=== PATIENT | male | born 1960 | race Caucasian/White ===

== ENCOUNTER 2020-08-24 07:59 | Inpatient (IN) | payer OTHER ==
[2020-08-24] MEDS ORDERED: NITROGLYCERIN OINT 1 INCH/GM PACKET TOPICAL STA (08:22)
[2020-08-24] MEDS ORDERED: ASPIRIN 81 MG PO STA (08:22)
--- NOTE | 2020-08-24 08:25 | ED ---
General Adult HPI - General Chief complaint: Chest Pain Stated complaint: chest pain Time Seen by Provider: 08/24/20 08:00 Source: patient, RN notes reviewed, old records reviewed Mode of arrival: ambulatory Limitations: no limitations - History of Present Illness Initial comments: This is a 60-year-old male with a past medical history significant for multiple heart attacks stents and bypass surgery. Patient states today's discomfort started about 2 hours ago and goes worse just to his left arm. Patient states this feels exactly like his chest pain always feels weak and he has a heart attack. Patient states he has some shortness of breath. Patient denies any diaphoretic episodes. Patient denies any nausea. Patient denies taking any aspirin or nitroglycerin. Patient states he does continue to smoke. Patient denies any abdominal pain patient denies any back pain. Patient denies any headache patient denies lightheadedness dizziness or near syncopal episode. Patient denies any numbness weakness per patient denies any leg swelling or calf tenderness. - Related Data Home Medications Medication Instructions Recorded Confirmed No Known Home Medications 08/24/20 08/24/20 Allergies Allergy/AdvReac Type Severity Reaction Status Date / Time No Known Allergies Allergy Verified 08/24/20 09:25 Review of Systems ROS Statement: Those systems with pertinent positive or pertinent negative responses have been documented in the HPI. ROS Other: All systems not noted in ROS Statement are negative. Past Medical History Past Medical History: Coronary Artery Disease (CAD), CVA/TIA, Hyperlipidemia, Hypertension, Myocardial Infarction (non Q-wave) Additional Past Medical History / Comment(s): 02/14/15 Pt presented to [facility] ER with burining in his chest on and off for past several weeks. Other HX: Pt believes he has had abouut 4 MIs with last one being the summer. He had a CVA during cardiac cath with stent in 2009-he still has alittle R hand numbness as residual. Pt states he notices that his R leg will get numb if he stands for a long time or walks a long distance. Last Myocardial Infarction Date:: 2009 History of Any Multi-Drug Resistant Organisms: None Reported Past Surgical History: Coronary Bypass/CABG, Heart Catheterization With Stent Additional Past Surgical History / Comment(s): 2003 triple vessel CABG at [facility] in [place]. Cardiac cath with stents last performed in [facility] in 2009. Past Anesthesia/Blood Transfusion Reactions: No Reported Reaction Date of Last Stent Placement:: 2009 Past Psychological History: No Psychological Hx Reported Smoking Status: Current every day smoker Past Alcohol Use History: Occasional Past Drug Use History: None Reported - Past Family History Father Family Medical History: Coronary Artery Disease (CAD) Additional Family Medical History / Comment(s): Father had CABG Mother Family Medical History: Coronary Artery Disease (CAD), Diabetes Mellitus Additional Family Medical History / Comment(s): Mother after CABG at age 62yrs. General Exam - General Exam Comments Initial Comments: GENERAL: Patient is well-developed and well-nourished. Patient is nontoxic and well- hydrated and is in mild distress. ENT: Neck is soft and supple. No significant lymphadenopathy is noted. Oropharynx is clear. Moist mucous membranes. Neck has full range of motion without eliciting any pain. EYES: The sclera were anicteric and conjunctiva were pink and moist. Extraocular movements were intact and pupils were equal round and reactive to light. Eyelids were unremarkable. PULMONARY: Unlabored respirations. Good breath sounds bilaterally. No audible rales rhonchi or wheezing was noted. CARDIOVASCULAR: There is a regular rate and rhythm without any murmurs gallops or rubs. ABDOMEN: Soft and nontender with normal bowel sounds. SKIN: Skin is clear with no lesions or rashes and otherwise unremarkable. NEUROLOGIC: Patient is alert and oriented x3. Cranial nerves II through XII are grossly intact. Motor and sensory are also intact. Normal speech, volume and content. Symmetrical smile. MUSCULOSKELETAL: Normal extremities with adequate strength and full range of motion. LYMPHATICS: No significant lymphadenopathy is noted PSYCHIATRIC: Normal psychiatric evaluation. Limitations: no limitations Course Vital Signs 08/24/20 08:01 Temperature 98 F Pulse Rate 67 Respiratory 18 Rate Blood Pressure 104/71 O2 Sat by Pulse 100 Oximetry Medical Decision Making - Medical Decision Making EKG shows normal sinus rhythm at 67 bpm WY interval 262 QRS is 130 for QT intervals 434 QTC is 458. Patient's EKG shows ST segment depression in precordial leads V3 through V6. Patient has inverted T waves in leads 3 and aVF V5 and V6. These are seen in previous EKG to a lesser degree. Second EKG was done shows normal sinus rhythm at 60 bpm WY interval is 172 QRS is 148 QT interval 448 QTC is 476. Patient's EKG continued to show some inverted T waves in V5 and V6 and slight ST segment depression in V3 and V4. This is slightly improved compared the previous EKG. I started the patient on heparin because his significant symptoms indicative of unstable angina. I spoke with Dr. schwarz he agreed to admit the patient admitted the patient wrote admitting orders I consult cardiology continue the heparin aspirin Nitropaste on the floor. - Lab Data Result diagrams: 08/24/20 08:50 08/24/20 08:50 Lab Results 08/24/20 08/24/20 08/24/20 Range/Units 08:50 08:50 08:50 WBC 12.5 H (3.8-10.6) k/uL RBC 5.63 (4.30-5.90) m/uL Hgb 17.6 H (13.0-17.5) gm/dL Hct 54.4 H (39.0-53.0) % MCV 96.5 (80.0-100.0) fL MCH 31.2 (25.0-35.0) pg MCHC 32.3 (31.0-37.0) g/dL RDW 13.2 (11.5-15.5) % Plt Count 297 (150-450) k/uL Neutrophils % 85 % Lymphocytes % 8 % Monocytes % 4 % Eosinophils % 2 % Basophils % 1 % Neutrophils # 10.7 H (1.3-7.7) k/uL Lymphocytes # 1.0 (1.0-4.8) k/uL Monocytes # 0.5 (0-1.0) k/uL Eosinophils # 0.2 (0-0.7) k/uL Basophils # 0.1 (0-0.2) k/uL PT 10.2 (9.0-12.0) sec INR 1.0 (<1.2) APTT 23.9 (22.0-30.0) sec Sodium 142 (137-145) mmol/L Potassium 4.8 (3.5-5.1) mmol/L Chloride 106 (98-107) mmol/L Carbon Dioxide 26 (22-30) mmol/L Anion Gap 10 mmol/L BUN 23 H (9-20) mg/dL Creatinine 1.33 H (0.66-1.25) mg/dL Est GFR (CKD-EPI)AfAm 67 (>60 ml/min/1.73 sqM) Est GFR (CKD-EPI)NonAf 58 (>60 ml/min/1.73 sqM) Glucose 113 H (74-99) mg/dL Calcium 9.8 (8.4-10.2) mg/dL Magnesium 2.0 (1.6-2.3) mg/dL Total Bilirubin 0.6 (0.2-1.3) mg/dL AST 26 (17-59) U/L ALT 19 (4-49) U/L Alkaline Phosphatase 72 (38-126) U/L Troponin I (0.000-0.034) ng/mL Total Protein 8.7 H (6.3-8.2) g/dL Albumin 5.0 (3.5-5.0) g/dL 08/24/20 Range/Units 08:50 WBC (3.8-10.6) k/uL RBC (4.30-5.90) m/uL Hgb (13.0-17.5) gm/dL Hct (39.0-53.0) % MCV (80.0-100.0) fL MCH (25.0-35.0) pg MCHC (31.0-37.0) g/dL RDW (11.5-15.5) % Plt Count (150-450) k/uL Neutrophils % % Lymphocytes % % Monocytes % % Eosinophils % % Basophils % % Neutrophils # (1.3-7.7) k/uL Lymphocytes # (1.0-4.8) k/uL Monocytes # (0-1.0) k/uL Eosinophils # (0-0.7) k/uL Basophils # (0-0.2) k/uL PT (9.0-12.0) sec INR (<1.2) APTT (22.0-30.0) sec Sodium (137-145) mmol/L Potassium (3.5-5.1) mmol/L Chloride (98-107) mmol/L Carbon Dioxide (22-30) mmol/L Anion Gap mmol/L BUN (9-20) mg/dL Creatinine (0.66-1.25) mg/dL Est GFR (CKD-EPI)AfAm (>60 ml/min/1.73 sqM) Est GFR (CKD-EPI)NonAf (>60 ml/min/1.73 sqM) Glucose (74-99) mg/dL Calcium (8.4-10.2) mg/dL Magnesium (1.6-2.3) mg/dL Total Bilirubin (0.2-1.3) mg/dL AST (17-59) U/L ALT (4-49) U/L Alkaline Phosphatase (38-126) U/L Troponin I 0.028 (0.000-0.034) ng/mL Total Protein (6.3-8.2) g/dL Albumin (3.5-5.0) g/dL Critical Care Time Critical Care Time: Yes Total Critical Care Time: 35 Disposition Clinical Impression: Unstable angina pectoris Disposition: ADMITTED IP TO THIS HOSP Referrals: None,Stated [Primary Care Provider] - 1-2 days Time of Disposition: 09:48
[2020-08-24] MEDS ORDERED: SODIUM CHLORIDE 0.9% 1,000 ML IV ONE (08:26)
[2020-08-24 09:00] LABS: Basophils # (A) 0.1 k/uL (0-0.2); Basophils % (A) 1 %; Eosinophils # (A) 0.2 k/uL (0-0.7); Eosinophils % (A) 2 %; HCT 54.4 % (39.0-53.0); HGB 17.6 gm/dL (13.0-17.5); Lymphocytes % (A) 8 %; MCH 31.2 pg (25.0-35.0); MCHC 32.3 g/dL (31.0-37.0); MCV 96.5 fL (80.0-100.0); Mean Platelet Volume 8.3; Monocytes # (A) 0.5 k/uL (0-1.0); Monocytes % (A) 4 %; Neutrophils # (A) 10.7 k/uL (1.3-7.7); Neutrophils % (A) 85 %; Platelet Count 297 k/uL (150-450); RBC 5.63 m/uL (4.30-5.90); RDW 13.2 % (11.5-15.5); WBC 12.5 k/uL (3.8-10.6)
[2020-08-24 09:17] LABS: Calcium 9.8 mg/dL (8.4-10.2); Potassium 4.8 mmol/L (3.5-5.1); Total Bilirubin 0.6 mg/dL (0.2-1.3); Total Protein 8.7 g/dL (6.3-8.2)
[2020-08-24] MEDS ORDERED: MORPHINE SULFATE 2 MG/ML SYRINGE IVP STA (09:19)
[2020-08-24 09:22] LABS: Partial Thromboplastin Time 23.9 sec (22.0-30.0); Prothrombin Time 10.2 sec (9.0-12.0)
--- NOTE | 2020-08-24 09:22 | XR ---
EXAMINATION TYPE: XR chest 2V DATE OF EXAM: 08/24/2020 COMPARISON: 02/07/1715 TECHNIQUE: PA and lateral views submitted. HISTORY: Chest pain FINDINGS: The lungs are clear and there is no pneumothorax, pleural effusion, or focal pneumonia. Heart is pr ominent there is postoperative change. Hyperinflation suggests COPD. Mild coarsened interstitium. Hyp ertrophic and degenerative change of the spine. IMPRESSION: 1. COPD with cardiomegaly correlate for mild chronic interstitial venous congestion or interstitial l murali disease.
[2020-08-24] MEDS ORDERED: HEPARIN SOD,PORK IN 0.45% NACL 25,000 UNIT in 0.45% NACL 1 250ML.BAG IV SCH (09:45)
[2020-08-24] MEDS ORDERED: HEPARIN SODIUM,PORCINE 5,000 UNIT/ML 1 ML VIAL IV ONE (09:45)
[2020-08-24] MEDS ORDERED: NITROGLYCERIN SL TABS 0.4 MG TAB SUBLINGUAL PRN ×2 (09:48→12:41)
[2020-08-24] MEDS ORDERED: HYDROmorphone 0.5 MG/0.5 ML SYRINGE IVP STA (09:49)
[2020-08-24] MEDS ORDERED: SODIUM CHLORIDE 0.9% 500 ML 500 ML IV STA (09:49)
[2020-08-24] MEDS ORDERED: HYDROmorphone 0.5 MG/0.5 ML SYRINGE IVP PRN (11:39)
[2020-08-24] MEDS ORDERED: HYDROmorphone 1 MG/ML 1 ML SYRINGE IVP STA (11:47)
[2020-08-24] MEDS: NITROGLYCERIN OINT 1 INCH/GM PACKET TOPICAL SCH ×3 (12:21→23:35)
--- NOTE | 2020-08-24 12:38 | P.HPIM ---
History of Present Illness This is a pleasant 6 years old male with past medical history of coronary artery disease status post bypass surgery and multiple stents, he says that he has a stent placed in [facility], another stent in this hospital and last stent was placed and a segment of about one year ago patient states that he does not follow up with exchange underwriting consultant. I asked the patient takes any antiplatelets and he denies. He presents because of central chest pain of one-day duration, central severe, felt like pressure, similar to previous heart attack, no dyspnea or coughing or dizziness. He had multiple EKG was suspicious for mild ST elevation in inferior leads, as well as in V1 and V2. With some ST depression and T-wave inversion in the lat eral leads. Labs showing elevated troponin , First one was negative at 0.028, second one was 0.872, also his creatinine is slightly elevated at 1.3, no recent baseline. INR is normal to 1.0. He has mild leukocytosis of 12.5 k.. Chest x-ray of: No acute process. COPD Patient smokes about 1 pack per day, patient is counseled and he declines nicotine patch, he denies alcohol or illicit drugs. Patient states that he hasn't seen any doctor for a year I discussed the case with exchange underwriting consultant team who are at bedside evaluating the patient Review of Systems CONSTITUTIONAL: No fever, no malaise, no fatigue. HEENT: No recent visual problems or hearing problems. Denied any sore throat. CARDIOVASCULAR: No orthopnea, PND, no palpitations, no syncope. PULMONARY: No shortness of breath, no cough, no hemoptysis. GASTROINTESTINAL: No diarrhea, no nausea, no vomiting, no abdominal pain. Normoactive bowel sounds. NEUROLOGICAL: No headaches, no weakness, no numbness. HEMATOLOGICAL: Denies any bleeding or petechiae. GENITOURINARY: Denies any burning micturition, frequency, or urgency. MUSCULOSKELETAL/RHEUMATOLOGICAL: Denies any joint pain, swelling, or any muscle pain. ENDOCRINE: Denies any polyuria or polydipsia. Past Medical History Past Medical History: Coronary Artery Disease (CAD), CVA/TIA, Hyperlipidemia, Hypertension, Myocardial Infarction (non Q-wave) Additional Past Medical History / Comment(s): 02/14/15 Pt presented to [facility] ER with burining in his chest on and off for past several weeks. Other HX: Pt believes he has had abouut 4 MIs with last one being the summer. He had a CVA during cardiac cath with stent in 2009-he still has alittle R hand numbness as residual. Pt states he notices that his R leg will get numb if he stands for a long time or walks a long distance. Last Myocardial Infarction Date:: 2009 History of Any Multi-Drug Resistant Organisms: None Reported Past Surgical History: Coronary Bypass/CABG, Heart Catheterization With Stent Additional Past Surgical History / Comment(s): 2003 triple vessel CABG at [facility] in [place]. Cardiac cath with stents last performed in [facility] in 2009. Past Anesthesia/Blood Transfusion Reactions: No Reported Reaction Date of Last Stent Placement:: 2009 Past Psychological History: No Psychological Hx Reported Smoking Status: Current every day smoker Past Alcohol Use History: Occasional Past Drug Use History: None Reported - Past Family History Father Family Medical History: Coronary Artery Disease (CAD) Additional Family Medical History / Comment(s): Father had CABG Mother Family Medical History: Coronary Artery Disease (CAD), Diabetes Mellitus Additional Family Medical History / Comment(s): Mother after CABG at age 62yrs. Medications and Allergies Home Medications Medication Instructions Recorded Confirmed Type No Known Home Medications 08/24/20 08/24/20 History Allergies Allergy/AdvReac Type Severity Reaction Status Date / Time No Known Allergies Allergy Verified 08/24/20 09:25 Physical Exam Vitals: Vital Signs Temp Pulse Pulse Resp BP BP Pulse Ox 08/24/20 11:15 97.1 F L 71 16 113/72 96 08/24/20 10:26 66 16 102/70 99 08/24/20 09:59 72 16 102/70 96 08/24/20 09:48 69 16 101/67 99 08/24/20 08:01 98 F 67 18 104/71 100 Intake and Output 08/23/20 08/24/20 08/24/20 22:59 06:59 14:59 Other: Weight 86.183 kg GENERAL: The patient is alert and oriented x3, not in any acute distress. Well developed, well nourished. HEENT: Pupils are round and equally reacting to light. EOMI. No scleral icterus. No conjunctival pallor. Normocephalic, atraumatic. No pharyngeal erythema. No thyromegaly. CARDIOVASCULAR: S1 and S2 present. No murmurs, rubs, or gallops. PULMONARY: Chest is clear to auscultation, no wheezing or crackles. ABDOMEN: Soft, nontender, nondistended, normoactive bowel sounds. No palpable organomegaly. MUSCULOSKELETAL: No joint swelling or deformity. EXTREMITIES: No cyanosis, clubbing, or pedal edema. NEUROLOGICAL: Gross neurological examination did not reveal any focal deficits. SKIN: No rashes. No petechiae Results CBC & Chem 7: 08/24/20 08:50 08/24/20 08:50 Labs: Abnormal Lab Results - Last 24 Hours (Table) 08/24/20 08/24/20 08/24/20 Range/Units 08:50 08:50 10:50 WBC 12.5 H (3.8-10.6) k/uL Hgb 17.6 H (13.0-17.5) gm/dL Hct 54.4 H (39.0-53.0) % Neutrophils # 10.7 H (1.3-7.7) k/uL BUN 23 H (9-20) mg/dL Creatinine 1.33 H (0.66-1.25) mg/dL Glucose 113 H (74-99) mg/dL Troponin I 0.872 H* (0.000-0.034) ng/mL Total Protein 8.7 H (6.3-8.2) g/dL Assessment and Plan Assessment: Severe chest pain with elevated troponin suspicious for acute coronary syndrome noncompliance Acute kidney injury Nicotine dependence History of hypertension, blood pressure currently is low-normal Hyperlipidemia history of CABG and coronary artery disease status post multiple stents Plan: this is a pleasant 6 years old male who presents with chest pain, looks like of cardiac origin. Cardiology. Patient declined nicotine patch. We'll keep monitoring his creatinine and if escape worsening than normal cancer nephrology consult team evaluated the patient now, he is on heparin drip already and we'll continue that, continue with normal saline at 75 mL/h Labs and medication were reviewed.. Continue same treatment. Continue with symptomatic treatment. Resume home medication. Monitor lytes and vitals. DVT and GI prophylaxis. Further recommendations depends on the clinical course of the patient DVT prophylaxis: heparin GI Prophylaxis: Ppi Prognosis is guarded
[2020-08-24] MEDS ORDERED: ASPIRIN 325 MG TAB PO STA (12:41)
[2020-08-24] MEDS ORDERED: ATORVASTATIN 80 MG TAB PO STA (12:41)
[2020-08-24] MEDS ORDERED: ALPRAZolam 0.5 MG TAB PO PRN (12:41)
[2020-08-24] MEDS ORDERED: SODIUM CHLORIDE 0.9% 1,000 ML in EMPTY BAG 1 BAG IV ONE (12:41)
[2020-08-24] MEDS ORDERED: ALPRAZolam 0.25 MG TAB PO PRN (12:41)
[2020-08-24] MEDS ORDERED: LIDOCAINE 1% INJ 10MG/ML (20 ML MDV) ONE (13:11)
[2020-08-24] MEDS ORDERED: fentaNYL (PF) 50 MCG/ML 2 ML AMP ONE (13:26)
[2020-08-24] MEDS ORDERED: MIDAZOLAM 2 MG/2 ML VIAL IVP ONE (13:29)
[2020-08-24] MEDS ORDERED: fentaNYL (PF) 50 MCG/ML 2 ML AMP IVP ONE (13:30)
[2020-08-24] MEDS ORDERED: LIDOCAINE 1% INJ 10MG/ML (20 ML MDV) SQ ONE (13:30)
[2020-08-24] MEDS ORDERED: IV FLUID CONTINUATION 1,000 ML IV ONE (13:30)
--- NOTE | 2020-08-24 13:37 | P.CRDCN ---
History of Present Illness Consult date: 08/24/20 Requesting physician: Fan E Sheet Consult reason: chest pain Chief complaint: Chest pain History of present illness: This is a 60-year-old gentleman with documented history of coronary artery disease, he underwent coronary artery bypass grafting surgery in 2003 at which time patient had a LINARES to the LAD, saphenous vein graft to the RCA and saphenous vein graft to the ramus, and 2009 he presented with an acute inferior wall myocardial infarction to the hospital in [place], underwent stenting of a totally occluded vein graft to the ramus at that time, his RCA graft was presumably open although not mentioned in the report and the LINARES to the LAD was patent. Patient did incur a periprocedural stroke with speech disturbance at that time. In 2014 patient underwent a cardiac catheterization here with PTCA of the saphenous vein graft to the ramus and PTCA and stenting of the left main coronary artery in the body proximal and mid circumflex coronary artery. Patient also has a history of hypertension, hyperlipidemia, nicotine dependency smokes at least 2 packs of cigarettes per day, patient also used to drink alcohol heavily but states that he quit approximately 2 years ago. Patient does not follow with a contact lens fitter in spite of all of his cardiac history. He also states that he was not taking any Plavix at home, it is questionable as to whether or not he was even taking aspirin. He presented to the emergency room on this occasion with symptoms of midsternal chest pressure and heaviness which she states reminded him of what he had with prior stenting. Patient does state in September of last year he underwent angioplasty and stent placement in [facility]. His initial EKG on presentation here was performed at 8 11 in the morning it showed a normal sinus rhythm with possible mild ST elevation in the inferior leads and ST depression noted in the lateral leads. Subsequent EKG showed normal sinus rhythm with ST depression noted in the lateral leads and T- wave inversion in the inferior leads. Chest x-ray showed COPD with cardiomegaly, mild chronic interstitial venous congestion. Blood pressure 102/70 with a heart rate in the 60s to 70s, 99% on 2 L of oxygen. White blood cell count 12.5, hemoglobin 17.6, platelet count 297. Sodium 142, potassium 4.8, BUN 23, creatinine 1.3. Initial troponin 0.028, subsequent troponin 0.872. Magnesium 2.0. At the time of my examination in the emergency room, patient continues to have midsternal chest pressure and heaviness, he has Nitropaste on and was given 0.5 of the LAD, in spite of that continues to have chest discomfort. Past Medical History Past Medical History: Coronary Artery Disease (CAD), Heart Failure, COPD, CVA/TIA, Hyperlipidemia, Hypertension, Myocardial Infarction (ND) Additional Past Medical History / Comment(s): Pt states he had a CVA during cardiac cath/stent in 2009 and has alittle R hand numbness, R leg pain/numbness if stands too long. Last Myocardial Infarction Date:: 2014 History of Any Multi-Drug Resistant Organisms: None Reported Past Surgical History: Coronary Bypass/CABG, Heart Catheterization With Stent Additional Past Surgical History / Comment(s): 2003 triple vessel CABG at [facility] in [place], PCI/stents-some done im [facility]. Past Anesthesia/Blood Transfusion Reactions: No Reported Reaction Date of Last Stent Placement:: 2014 Smoking Status: Current every day smoker - Past Family History Father Family Medical History: Coronary Artery Disease (CAD) Additional Family Medical History / Comment(s): Father had CABG Mother Family Medical History: Coronary Artery Disease (CAD), Diabetes Mellitus Additional Family Medical History / Comment(s): Mother after CABG at age 62yrs. Medications and Allergies Home Medications Medication Instructions Recorded Confirmed Type No Known Home Medications 08/24/20 08/24/20 History Allergies Allergy/AdvReac Type Severity Reaction Status Date / Time No Known Allergies Allergy Verified 08/24/20 09:25 Physical Exam Vitals: Vital Signs Temp Pulse Pulse Resp BP BP Pulse Ox 08/24/20 11:15 97.1 F L 71 16 113/72 96 08/24/20 10:26 66 16 102/70 99 08/24/20 09:59 72 16 102/70 96 08/24/20 09:48 69 16 101/67 99 08/24/20 08:01 98 F 67 18 104/71 100 Intake and Output 08/23/20 08/24/20 08/24/20 22:59 06:59 14:59 Other: Weight 86.183 kg PHYSICAL EXAMINATION: GENERAL: 60-year-old gentleman, complaining of chest pressure, radiating at a 9 or 10 at the time of my examination HEENT: Head is atraumatic, normocephalic. Pupils equal, round. Sclera anicteric. Conjunctiva are clear. Mucous membranes of the mouth are moist. Neck is supple. There is no elevated jugular venous pressure. No carotid bruit is heard. HEART EXAMINATION: Heart S1, S2 normal. No murmur or gallop heard. CHEST EXAMINATION: Lungs are clear to auscultation and precussion. No chest wall tenderness is noted on palpation or with deep breathing. Chest pressure and tightness ABDOMEN: Soft, nontender. Bowel sounds are heard. No organomegaly noted. EXTREMITIES: 2+ peripheral pulses with no evidence of peripheral edema and no calf tenderness noted. NEUROLOGIC patient is awake, alert and oriented 3 . . Results 08/24/20 08:50 08/24/20 08:50 Cardiac Enzymes 08/24/20 08/24/20 08/24/20 Range/Units 08:50 08:50 10:50 AST 26 (17-59) U/L Troponin I 0.028 0.872 H* (0.000-0.034) ng/mL Coagulation 08/24/20 Range/Units 08:50 PT 10.2 (9.0-12.0) sec APTT 23.9 (22.0-30.0) sec CBC 08/24/20 Range/Units 08:50 WBC 12.5 H (3.8-10.6) k/uL RBC 5.63 (4.30-5.90) m/uL Hgb 17.6 H (13.0-17.5) gm/dL Hct 54.4 H (39.0-53.0) % Plt Count 297 (150-450) k/uL Comprehensive Metabolic Panel 08/24/20 Range/Units 08:50 Sodium 142 (137-145) mmol/L Potassium 4.8 (3.5-5.1) mmol/L Chloride 106 (98-107) mmol/L Carbon Dioxide 26 (22-30) mmol/L BUN 23 H (9-20) mg/dL Creatinine 1.33 H (0.66-1.25) mg/dL Glucose 113 H (74-99) mg/dL Calcium 9.8 (8.4-10.2) mg/dL AST 26 (17-59) U/L ALT 19 (4-49) U/L Alkaline Phosphatase 72 (38-126) U/L Total Protein 8.7 H (6.3-8.2) g/dL Albumin 5.0 (3.5-5.0) g/dL Current Medications Generic Name Dose Route Start Last Admin Trade Name Freq PRN Reason Stop Dose Admin Alprazolam 0.25 mg 08/24/20 12:41 Alprazolam 0.25 Mg Tab PO Q6HR PRN Mild Anxiety Alprazolam 0.5 mg 08/24/20 12:41 Alprazolam 0.5 Mg Tab PO Q6HR PRN Moderate Anxiety Aspirin 325 mg 08/25/20 09:00 Aspirin 325 Mg Tab PO DAILY DANILO Hydromorphone HCl 0.5 mg 08/24/20 11:39 Hydromorphone 0.5 Mg/0.5 Ml Syringe IVP Q3HR PRN Pain Heparin Sodium/Sodium Chloride 250 mls @ 9.997 mls/hr 08/24/20 09:45 08/24/20 09:55 25,000 unit/ Sodium Chloride IV 11.6 units/kg/hr .Q24H DANILO 9.997 mls/hr Administration Protocol 11.6 UNITS/KG/HR Sodium Chloride 1,000 ml/ IV 1,000 mls @ 86.183 mls/hr 08/24/20 12:41 Solution IV 08/25/20 00:17 .[id number] ONE 1 ML/KG/HR Nitroglycerin 0.4 mg 08/24/20 09:48 Nitroglycerin Sl Tabs 0.4 Mg Tab SUBLINGUAL Q5M PRN Chest Pain Nitroglycerin 1 inch 08/24/20 12:00 08/24/20 12:21 Nitroglycerin Oint 1 Inch/Gm Packet TOPICAL 1 inch Q6HR DANILO Administration Nitroglycerin 0.4 mg 08/24/20 12:41 Nitroglycerin Sl Tabs 0.4 Mg Tab SUBLINGUAL Q5M PRN Chest Pain Intake and Output 08/23/20 08/24/20 08/24/20 22:59 06:59 14:59 Other: Weight 86.183 kg Patient Weight 08/25/20 06:59 Weight 86.183 kg 08/24/20 08:50 08/24/20 08:50 EKG Interpretations (text) EKG shows normal sinus rhythm with mild ST elevation noted in the inferior leads, lateral ST depression Assessment and Plan Plan: Assessment and plan #1 non-ST elevation myocardial infarction #2 known history of coronary artery disease with prior bypass surgery and multi ple stent placements #3 noncompliance with medications #4 nicotine dependence #5 hypertension #6 hyperlipidemia #7 prior CVA #8 COPD #9 history of significant EtOH use #10 mild renal insufficiency, creatinine 1.3 Plan Patient was given aspirin, he is currently on IV heparin, Nitropaste, he's been advised to undergo urgent cardiac catheterization, the risks and benefits again were explained to the patient in detail and he is willing to proceed. This will be performed today by Dr. Luo. We will also repeat an echocardiogram with Doppler study and obtain the records from [place] which is the last place the patient had stenting done, in September 2019. IV fluids at 75 mL per hour. Check lytes BUN and creatinine in the morning. Further recommendations to follow. DNP note has been reviewed, I agree with a documented findings and plan of care. Patient was seen and examined.
[2020-08-24] MEDS ORDERED: FUROSEMIDE 10 MG/ML 4 ML VIAL ONE (14:44)
[2020-08-24] MEDS ORDERED: FUROSEMIDE 10 MG/ML 4 ML VIAL IV ONE (14:45)
[2020-08-24] MEDS ORDERED: BIVALIRUDIN BOLUS 250 MG/50 ML IV ONE (14:48)
[2020-08-24] MEDS ORDERED: BIVALIRUDIN 250 MG in SODIUM CHLORIDE 0.9% 50 ML IV ONE (14:48)
[2020-08-24] MEDS ORDERED: NOREPINEPHRINE 4 MG in SODIUM CHLORIDE 0.9% 250 ML IV ONE (14:49)
[2020-08-24] MEDS ORDERED: IOPAMIDOL-370 125ML BTL INJ ONE (15:09)
[2020-08-24] MEDS ORDERED: TICAGRELOR 90 MG TAB ONE (15:14)
[2020-08-24] MEDS ORDERED: TICAGRELOR 90 MG TAB PO ONE (15:16)
[2020-08-24] MEDS ORDERED: IOPAMIDOL-370 100ML BTL INJ ONE (15:18)
--- NOTE | 2020-08-24 19:56 | PTCA ---
PERCUTANEOUSTRANS CORORONARY ANGIOGRAPHY DATE OF SERVICE: 08/24/2020 PROCEDURE: Percutaneous transluminal coronary angioplasty and stenting of ostial and proximal mid distal left main and proximal circumflex with drug-eluting stent. PERFORMED BY: Dr. Elvira Arora. CLINICAL INFORMATION: Mr. Eb Rosenberg is a 60-year-old gentleman who was evaluated by me in 2014 when he presented with a [id number] OR. His background history was that in 2003 he underwent aortocoronary bypass surgery with two vein grafts to the RCA and ramus intermedius and a LINARES to LAD. In 2009 he was found to have an acute inferior OR in [place]. At that time he had a totally occluded vein graft to the ramus that was stented. RCA graft was presumably open. When I performed a cardiac cath in 2014, saphenous vein graft to the intermediate was totally occluded, filled with thrombus. The vein graft to the RCA was widely patent with a 30% to 40% narrowing. LINARES to LAD was patent. However, there was a significant lesion in the left main coronary artery within the body of the left main, but not necessarily in the ostium. I attempted stenting of a vein graft to the ramus, but this was unsuccessful, and the graft was aneurysmal with 6 mm size or more. I performed stenting of the left main coronary artery in the body and also the proximal and mid circumflex. Following that, the patient was lost to followup and then he showed up in the emergency room in [facility] in September 2019 with a cardiac arrest. He was resuscitated and transferred to [facility], where he had stenting of the left main, presumably because of restenosis. The proximal circumflex as well as the body of the left main was stented as well as mid circumflex was stented. Within the left main, there was a 3.0 caliber 22 mm long stent post-dilated with a 3.5 balloon. After this, again patient did not follow with anybody and has been taking aspirin on a periodic basis. He came into the emergency room with chest pain, had inferior ST-segment changes, and troponin elevation was seen and evaluated by Dr. Luo, who performed a cardiac cath. Cardiac cath revealed that vein grafts were not visualized, presumably occluded. LINARES to LAD was patent. The left main had an ostial lesion proximal lesion of 95% and the proximal circumflex also had a 60% lesion. The lesion in the left main was at least 95% to 99% in caudal projections. He was advised intervention that was performed in the same setting. PROCEDURE NOTE: The existing 6-Martiniquais introducer in the right femoral artery was used to perform the procedure. I used a standard JL4 guide catheter of 6-Martiniquais caliber and a Whisper wire to cross the lesion. The patient was started on Angiomax bolus and infusion. Because of significant myocardium at jeopardy, I started him on a Levophed drip at 2 mcg. Using a 2.5 caliber 15 mm NC Trek balloon, I pre-dilated the ostium of left main proximal left main as well as the proximal circumflex. LAD was totally occluded and the left main was providing only for circumflex. After multiple inflations, there was moderate improvement. I decided to deploy a 4.0 caliber stent. I used a 4.0 caliber 23 mm long Xience stent and deployed this with the proximal end of the stent at the ostium and distal end into the circumflex within the previously placed stent. This was deployed at [address]-segment depression and mild chest discomfort. He was not a good historian. Excellent angiographic result was achieved. Patient received 180 mg of Brilinta. He received Angiomax bolus and infusion. The sheath was taken out and Angio-Seal device used to secure hemostasis and he was sent to the room in a stable condition. Results were discussed with the patient, but no family members were available. Moderate conscious sedation time was 35 minutes. He was administered Versed. Oxygen saturation, hemodynamics and EKG were monitored closely. MMODL / IJN: [id number] /
[2020-08-24] MEDS: HEPARIN SODIUM,PORCINE 5,000 UNIT/ML 1 ML VIAL SQ SCH (20:40)
[2020-08-24] MEDS: METOPROLOL TARTRATE 12.5 MG TAB PO SCH (20:40)
[2020-08-24] MEDS: FAMOTIDINE 20 MG/2 ML VIAL IV SCH (20:40)
[2020-08-24] MEDS: SODIUM CHLORIDE 0.9% 1,000 ML IV SCH (20:41)
[2020-08-24] MEDS ORDERED: LOSARTAN 25 MG TAB PO SCH (21:00)
[2020-08-25] MEDS: SODIUM CHLORIDE 0.9% 1,000 ML IV SCH ×2 (05:33→23:02)
[2020-08-25] MEDS: NITROGLYCERIN OINT 1 INCH/GM PACKET TOPICAL SCH (05:49)
[2020-08-25] MEDS: FAMOTIDINE 20 MG/2 ML VIAL IV SCH (08:20)
[2020-08-25] MEDS: METOPROLOL TARTRATE 12.5 MG TAB PO SCH (08:20)
[2020-08-25] MEDS: FUROSEMIDE 20 MG TAB PO SCH (08:20)
[2020-08-25] MEDS: HEPARIN SODIUM,PORCINE 5,000 UNIT/ML 1 ML VIAL SQ SCH ×2 (08:20→20:54)
[2020-08-25] MEDS: ASPIRIN 81 MG PO SCH (08:20)
[2020-08-25] MEDS: TICAGRELOR 90 MG TAB PO SCH ×2 (08:21→20:55)
[2020-08-25 08:56] LABS: HCT 48.8 % (39.0-53.0); HGB 15.2 gm/dL (13.0-17.5); MCH 30.7 pg (25.0-35.0); MCHC 31.3 g/dL (31.0-37.0); MCV 98.3 fL (80.0-100.0); Mean Platelet Volume 7.9; Platelet Count 256 k/uL (150-450); RBC 4.96 m/uL (4.30-5.90); RDW 13.4 % (11.5-15.5); WBC 13.8 k/uL (3.8-10.6)
[2020-08-25] MEDS ORDERED: ASPIRIN 325 MG TAB PO SCH (09:00)
[2020-08-25 09:14] LABS: African American GFR (CKD) >90 (>60 ml/min/1.73 sqM); Anion Gap 8 mmol/L; Blood Urea Nitrogen 18 mg/dL (9-20); Carbon Dioxide 22 mmol/L (22-30); Chloride 110 mmol/L (98-107); Cholesterol 258 mg/dL (<200); Glucose 128 mg/dL (74-99); HDL Cholesterol 33 mg/dL (40-60); LDL Cholesterol,Calculated 207 mg/dL (0-99); Non-African American GFR(CKD) 87 (>60 ml/min/1.73 sqM); Potassium 4.8 mmol/L (3.5-5.1); Sodium 140 mmol/L (137-145); Triglycerides 92 mg/dL (<150)
--- NOTE | 2020-08-25 09:53 | ECHOF ---
Referral Reason:assess lvf MEASUREMENTS -------- HEIGHT: 182.9 cm WEIGHT: 86.2 kg BP: RVIDd: 3.1 cm (< 3.3) IVSd: 1.3 cm (0.6 - 1.1) LVIDd: 5.8 cm (3.9 - 5.3) LVPWd: 1.2 cm (0.6 - 1.1) IVSs: 1.7 cm LVIDs: 4.5 cm LVPWs: 1.2 cm LA Diam: 5.1 cm (2.7 - 3.8) LAESV Index (A-L): 41.72 ml/m Ao Diam: 2.7 cm (2.0 - 3.7) LA Diam: 5.2 cm (2.7 - 3.8) MV E Geovanni: 0.80 m/s MV DecT: 111 ms MV A Geovanni: 0.50 m/s MV E/A Ratio: 1.62 RAP: 5.00 mmHg RVSP: 17.11 mmHg FINDINGS -------- Sinus rhythm. This was a techncally difficult study with suboptimal views, , Lumason utilized for enhancement of im ages. The left ventricular size is normal. Left ventricular wall thickness is normal. There is severe g lobal hypokinesis of LV . Overall left ventricular systolic function is severely impaired with, an EF < 20%. Inferoposterior akinesia. The right ventricle is normal in size. The left atrium is markedly dilated. LA is severely dilated >40 ml/m2 The right atrial size is normal. 5.0mg OF Lumason UTLIZED: 2 OR MORE WALL SEGMENTS NOT VISUALIZED. There is mild aortic valve sclerosis. There is no evidence of aortic regurgitation. Mild mitral annular calcification present. Mild mitral regurgitation is present. Mild tricuspid regurgitation present. Right ventricular systolic pressure is normal at < 35 mmHg. Trace/mild (physiologic) pulmonic regurgitation. The aortic root size is normal. There is a small, generalized pericardial effusion present. CONCLUSIONS -------- 1. This was a techncally difficult study with suboptimal views, , Lumason utilized for enhancement of images. 2. The left ventricular size is normal. 3. Left ventricular wall thickness is normal. 4. There is severe global hypokinesis of LV . 5. Overall left ventricular systolic function is severely impaired with, an EF < 20%. 6. The right ventricle is normal in size. 7. The left atrium is markedly dilated. 8. LA is severely dilated >40 ml/m2 9. The right atrial size is normal. 10. 5.0mg OF Lumason UTLIZED: 2 OR MORE WALL SEGMENTS NOT VISUALIZED. 11. There is mild aortic valve sclerosis. 12. Mild mitral annular calcification present. 13. Mild mitral regurgitation is present. 14. Mild tricuspid regurgitation present. 15. Trace/mild (physiologic) pulmonic regurgitation. 16. The aortic root size is normal. 17. There is a small, generalized pericardial effusion present. INSERTER PROMOTIONAL ITEM: Marielle Molina RDCS
--- NOTE | 2020-08-25 11:29 | P.PN ---
Subjective Progress Note Date: 08/25/20 This is a 60-year-old gentleman with documented history of coronary artery disease, he underwent coronary artery bypass grafting surgery in 2003 at which time patient had a LINARES to the LAD, saphenous vein graft to the RCA and saphenous vein graft to the ramus, and 2009 he presented with an acute inferior wall myocardial infarction to the hospital in [place], underwent stenting of a totally occluded vein graft to the ramus at that time, his RCA graft was presumably open although not mentioned in the report and the LINARES to the LAD was patent. Patient did incur a periprocedural stroke with speech disturbance at that time. In 2014 patient underwent a cardiac catheterization here with PTCA of the saphenous vein graft to the ramus and PTCA and stenting of the left main coronary artery in the body proximal and mid circumflex coronary artery. Patient also has a history of hypertension, hyperlipidemia, nicotine dependency smokes at least 2 packs of cigarettes per day, patient also used to drink alcohol heavily but states that he quit approximately 2 years ago. Patient does not follow with a travel pt in spite of all of his cardiac history. He also states that he was not taking any Plavix at home, it is questionable as to whether or not he was even taking aspirin. He presented to the emergency room on this occasion with symptoms of midsternal chest pressure and heaviness which she states reminded him of what he had with prior stenting. Patient does state in September of last year he underwent angioplasty and stent placement in [facility]. His initial EKG on presentation here was performed at 8 11 in the morning it showed a normal sinus rhythm with possible mild ST elevation in the inferior leads and ST depression noted in the lateral leads. Subsequent EKG sh owed normal sinus rhythm with ST depression noted in the lateral leads and T- wave inversion in the inferior leads. Chest x-ray showed COPD with cardiomegaly, mild chronic interstitial venous congestion. Blood pressure 102/70 with a heart rate in the 60s to 70s, 99% on 2 L of oxygen. White blood c ell count 12.5, hemoglobin 17.6, platelet count 297. Sodium 142, potassium 4.8, BUN 23, creatinine 1.3. Initial troponin 0.028, subsequent troponin 0.872. Magnesium 2.0. At the time of my examination in the emergency room, patient continues to have midsternal chest pressure and heaviness, he has Nitropaste on and was given 0.5 of the LAD, in spite of that continues to have chest discomfort. 08/25/2020 The patient is status post PTCA and stenting of the ostial and proximal mid distal left main and proximal circumflex. He was seen and examined this morning, denied any chest pressure heaviness but did feel short of breath as compared with yesterday. His EKG that was performed this morning showed a normal sinus rhythm, with no acute changes noted post-PCI, we did do a subsequent EKG because of symptoms of shortness of breath, there were no new changes noted. Patient also had an echocardiogram with Doppler study performed which revealed a severely impaired left ventricular systolic function with an ejection fraction of less than 20%. Small generalized pericardial effusion. On review of the patient's a monitor, he is having runs of nonsustained ventricular tachycardia. Last evening the patient had a run of 38, lasting approximately 15 seconds. He also had a subsequent run of 8, and 5. Blood pressure 104/60 with a heart rate in the 70s, 94% on 2 L of oxygen. Blood cell count 13.8, hemoglobin 15.2, platelet count 256. Sodium 140, potassium 4.8, BUN 18, creatinine 0.9. Cholesterol is 258, LDL 207, HDL 33, triglycerides 92. I did have a conversation with the patient this morning, regarding his significantly reduced LV function. Patient states that always had a weak heart muscle. I also discussed in detail the importance of placing a LifeVest, or proceeding wit h implantation of AICD for prevention of sudden cardiac . We will get records of the patient's echo performed recently in September at [facility]. In the meantime the patient wishes to think about this. Objective - Vital Signs Vital signs: Vital Signs Temp 98.3 F 08/25/20 04:28 Pulse 70 08/25/20 08:00 Resp 18 08/25/20 08:00 BP 103/69 08/25/20 08:00 Pulse Ox 94 L 08/25/20 08:00 Intake & Output 08/24/20 08/25/20 08/25/20 18:59 06:59 18:59 Intake Total 120 1020 Output Total 1275 450 Balance -1155 570 Weight 86.183 kg 81.2 kg Intake: IV 120 Intake, IV Titration 900 Amount Sodium Chloride 0.9% 1, 900 000 ml @ 75 mls/hr IV . [id number] [facility] Rx#:[id number] Oral 120 Output: Urine 1275 450 Uretheral (Zepeda) 100 Other: Voiding Method Indwelling Catheter Indwelling Catheter - Exam PHYSICAL EXAMINATION: GENERAL: 60-year-old gentleman, no acute distress at the time of my examination HEENT: Head is atraumatic, normocephalic. Pupils equal, round. Sclera anicteric. Conjunctiva are clear. Mucous membranes of the mouth are moist. Neck is supple. There is no elevated jugular venous pressure. No carotid bruit is heard. HEART EXAMINATION: Heart S1, S2 normal. No murmur or gallop heard. CHEST EXAMINATION: Lungs are clear to auscultation and precussion. No chest wall tenderness is noted on palpation or with deep breathing. Chest pressure and ti ghtness ABDOMEN: Soft, nontender. Bowel sounds are heard. No organomegaly noted. EXTREMITIES: 2+ peripheral pulses with no evidence of peripheral edema and no calf tenderness noted. Right groin soft, no evidence of any hematoma. NEUROLOGIC patient is awake, alert and oriented 3 . . - Labs CBC & Chem 7: 08/25/20 07:45 08/25/20 07:45 Labs: Abnormal Lab Results - Last 24 Hours (Table) 08/24/20 08/25/20 08/25/20 Range/Units 10:50 07:45 07:45 WBC 13.8 H (3.8-10.6) k/uL Chloride 110 H (98-107) mmol/L Glucose 128 H (74-99) mg/dL Calcium 8.0 L (8.4-10.2) mg/dL Troponin I 0.872 H* (0.000-0.034) ng/mL Cholesterol 258 H (<200) mg/dL LDL Cholesterol, Calc 207 H (0-99) mg/dL HDL Cholesterol 33 L (40-60) mg/dL Assessment and Plan Plan: Assessment and plan #1 non-ST elevation myocardial infarction, status post PTCA and stenting of the ostial and proximal mid left main and proximal circumflex #2 known history of coronary artery disease with prior bypass surgery and multiple stent placements #3 noncompliance with medications #4 nicotine dependence #5 hypertension #6 hyperlipidemia #7 prior CVA #8 COPD #9 history of significant EtOH use #10 mild renal insufficiency #11 Ischemic cardiomyopathy with documented ejection fraction of less than 20% #12 runs of nonsustained ventricular tachycardia Plan We will decrease the Cozaar to 12-1/2 mg at at bedtime daily, increase metoprolol to 25 mg one tablet by mouth twice a day. Discontinue the Nitropaste. Continue a baby aspirin along with the Brilinta, and add Aldactone to the patient's medication regime. We will also obtain records from [facility] so we can evaluate further with the patient's most recent echo looked like. Patient has also been advised to undergo placement of a LifeVest, or implantation of AICD for prevention of sudden cardiac . We will discuss again further with the patient later today, at this point he wishes to think a bout it. DNP note has been reviewed, I agree with a documented findings and plan of care. Patient was seen and examined.
--- NOTE | 2020-08-25 12:36 | P.PN ---
Subjective 08/25/2020 Today patient is lying in bed with no chest pain, complaining of from some dyspnea especially with exertion. Yesterday he underwent cardiac cath status post PCI and placement of stent to the ostial and proximal mid left main and proximal circumflex. Vitals and labs are stable, he has mild leukocytosis. Creatinine is back to normal at 0.9 today. Echocardiogram showing severe LV function impairment with severe global hypokinesia Ejection fraction is less than 20% Objective - Vital Signs Vital signs: Vital Signs Temp 98.3 F 08/25/20 04:28 Pulse 70 08/25/20 08:00 Resp 18 08/25/20 08:00 BP 103/69 08/25/20 08:00 Pulse Ox 94 L 08/25/20 08:00 Intake & Output 08/24/20 08/25/20 08/25/20 18:59 06:59 18:59 Intake Total 120 1020 Output Total 1275 450 Balance -1155 570 Weight 86.183 kg 81.2 kg Intake: IV 120 Intake, IV Titration 900 Amount Sodium Chloride 0.9% 1, 900 000 ml @ 75 mls/hr IV . [id number] [facility] Rx#:[id number] Oral 120 Output: Urine 1275 450 Uretheral (Zepeda) 100 Other: Voiding Method Indwelling Catheter Indwelling Catheter - Exam GENERAL: The patient is alert and oriented x3, not in any acute distress. Well developed, well nourished. HEENT: Pupils are round and equally reacting to light. EOMI. No scleral icterus. No conjunctival pallor. Normocephalic, atraumatic. No pharyngeal erythema. No thyromegaly. CARDIOVASCULAR: S1 and S2 present. No murmurs, rubs, or gallops. PULMONARY: Chest is clear to auscultation, no wheezing or crackles. ABDOMEN: Soft, nontender, nondistended, normoactive bowel sounds. No palpable organomegaly. MUSCULOSKELETAL: No joint swelling or deformity. EXTREMITIES: No cyanosis, clubbing, or pedal edema. NEUROLOGICAL: Gross neurological examination did not reveal any focal deficits. SKIN: No rashes. no petechiae. - Labs CBC & Chem 7: 08/25/20 07:45 08/25/20 07:45 Labs: Abnormal Lab Results - Last 24 Hours (Table) 08/25/20 08/25/20 Range/Units 07:45 07:45 WBC 13.8 H (3.8-10.6) k/uL Chloride 110 H (98-107) mmol/L Glucose 128 H (74-99) mg/dL Calcium 8.0 L (8.4-10.2) mg/dL Cholesterol 258 H (<200) mg/dL LDL Cholesterol, Calc 207 H (0-99) mg/dL HDL Cholesterol 33 L (40-60) mg/dL Assessment and Plan Assessment: None STEMI, status post PCI and stent placement of the left main and proximal cephalic last branch Severe ischemic cardiomyopathy, patient was advised LifeVest or placement of AICD by cardiology team noncompliance Acute kidney injury Nicotine dependence History of hypertension, blood pressure currently is low-normal Hyperlipidemia history of CABG and coronary artery disease status post multiple stents Plan: this is a pleasant 6 years old male who presents with none STEMI, status post stent. Continue with aspirin and purulent. Cardiology team on the case. LifeVest or AICD was advised by the cartilage team due to his low ejection fraction less than 20%, patient will think about it and decide later. Check chest x-ray Labs and medication were reviewed.. Continue same treatment. Continue with symptomatic treatment. Resume home medication. Monitor lytes and vitals. DVT and GI prophylaxis. Further recommendations depends on the clinical course of the patient DVT prophylaxis: heparin GI Prophylaxis: Ppi Prognosis is guarded
--- NOTE | 2020-08-25 14:23 | XR ---
EXAMINATION TYPE: XR chest 1V portable DATE OF EXAM: 08/25/2020 COMPARISON: Chest x-ray 08/24/2020 HISTORY: Shortness of breath TECHNIQUE: Single frontal view of the chest is obtained. FINDINGS: Patient is post median sternotomy. Heart remains enlarged. There is no evident pneumothora x or pleural effusion. There are overlying cardiac leads. Interstitium appears mildly increased. IMPRESSION: Correlate for pulmonary venous hypertension and interstitial edema. Similar findings to prior exam.
[2020-08-25] MEDS ORDERED: FUROSEMIDE 10 MG/ML 4 ML VIAL IV STA (18:21)
[2020-08-25] MEDS: FAMOTIDINE 20 MG TAB PO SCH (20:53)
[2020-08-25] MEDS: METOPROLOL TARTRATE 25 MG TAB PO SCH (20:54)
[2020-08-25] MEDS ORDERED: ATORVASTATIN 80 MG TAB PO SCH (21:00)
[2020-08-25] MEDS ORDERED: LOSARTAN 25 MG TAB PO SCH (21:00)
[2020-08-26 07:35] LABS: Basophils % (A) 0 %; Eosinophils # (A) 0.1 k/uL (0-0.7); Eosinophils % (A) 0 %; HCT 44.4 % (39.0-53.0); HGB 14.5 gm/dL (13.0-17.5); Lymphocytes # (A) 0.9 k/uL (1.0-4.8); Lymphocytes % (A) 6 %; MCH 31.1 pg (25.0-35.0); MCHC 32.6 g/dL (31.0-37.0); MCV 95.3 fL (80.0-100.0); Mean Platelet Volume 8.1; Monocytes % (A) 7 %; Neutrophils # (A) 11.8 k/uL (1.3-7.7); Neutrophils % (A) 85 %; Platelet Count 216 k/uL (150-450); RBC 4.66 m/uL (4.30-5.90); RDW 13.5 % (11.5-15.5); WBC 13.9 k/uL (3.8-10.6)
[2020-08-26 07:55] LABS: African American GFR (CKD) >90 (>60 ml/min/1.73 sqM); Anion Gap 5 mmol/L; Blood Urea Nitrogen 19 mg/dL (9-20); Calcium 8.4 mg/dL (8.4-10.2); Carbon Dioxide 27 mmol/L (22-30); Chloride 106 mmol/L (98-107); Glucose 101 mg/dL (74-99); Non-African American GFR(CKD) 88 (>60 ml/min/1.73 sqM); Potassium 4.4 mmol/L (3.5-5.1); Sodium 138 mmol/L (137-145)
[2020-08-26 08:28] VITALS: BP 99/64; PULSE 79; RESP 17; TEMP 98.5
[2020-08-26] MEDS: ASPIRIN 81 MG PO SCH (08:30)
[2020-08-26] MEDS: TICAGRELOR 90 MG TAB PO SCH (08:30)
[2020-08-26] MEDS: HEPARIN SODIUM,PORCINE 5,000 UNIT/ML 1 ML VIAL SQ SCH (08:30)
[2020-08-26] MEDS: FAMOTIDINE 20 MG TAB PO SCH (08:30)
[2020-08-26] MEDS: METOPROLOL TARTRATE 25 MG TAB PO SCH (08:30)
[2020-08-26] MEDS: FUROSEMIDE 20 MG TAB PO SCH (08:30)
[2020-08-26] MEDS ORDERED: SPIRONOLACTONE 25 MG TAB PO SCH (09:00)
--- NOTE | 2020-08-26 13:31 | P.PN ---
Subjective Progress Note Date: 08/26/20 HISTORY OF PRESENT ILLNESS: Patient examined this morning at the bedside. He is status post stent to the ostial and mid distal left main and proximal circumflex. Patient denies chest pain or pressure. Denies shortness of breath. Patient is anxious to be discharged home. PHYSICAL EXAM: VITAL SIGNS: Reviewed. GENERAL: Well-developed in no acute distress. NECK: Supple. No JVD or thyromegaly LUNGS: Respirations even and unlabored. Lungs essentially clear to auscultation bilaterally. HEART: Regular rate and rhythm. S1 and S2 heard. EXTREMITIES: Normal range of motion. No clubbing or cyanosis. Peripheral pulses intact. No lower extremity edema ASSESSMENT: #1 non-ST elevation myocardial infarction, status post PTCA and stenting of the ostial and proximal mid left main and proximal circumflex #2 known history of coronary artery disease with prior bypass surgery and multiple stent placements #3 noncompliance with medications #4 nicotine dependence #5 hypertension #6 hyperlipidemia #7 prior CVA #8 COPD #9 history of significant EtOH use #10 mild renal insufficiency #11 Ischemic cardiomyopathy with documented ejection fraction of less than 20% #12 runs of nonsustained ventricular tachycardia PLAN: Patient is adamantly refusing AICD or life vest Continue current cardiac medications Patient may be discharged home today from a cardiac perspective. He is to follow up with Dr. Luo in 2 weeks. Nurse practitioner note has been reviewed by physician. Signing provider agrees with the documented findings, assessment, and plan of care. Objective - Vital Signs Vital signs: Vital Signs Temp 98.5 F 08/26/20 08:00 Pulse 79 08/26/20 08:00 Resp 17 08/26/20 08:00 BP 99/64 08/26/20 08:00 Pulse Ox 96 08/26/20 08:00 Intake & Output 08/25/20 08/26/20 08/26/20 18:59 06:59 18:59 Intake Total 660 720 240 Output Total 300 600 Balance 360 120 240 Weight 80.8 kg Intake: Oral 660 720 240 Output: Urine 300 600 Other: Voiding Method Indwelling Catheter - Labs CBC & Chem 7: 08/26/20 06:52 08/26/20 06:52 Labs: Abnormal Lab Results - Last 24 Hours (Table) 08/26/20 08/26/20 Range/Units 06:52 06:52 WBC 13.9 H (3.8-10.6) k/uL Neutrophils # 11.8 H (1.3-7.7) k/uL Lymphocytes # 0.9 L (1.0-4.8) k/uL Glucose 101 H (74-99) mg/dL
--- NOTE | 2020-08-26 13:51 | CC ---
CARDIAC CATHETERIZATION REPORT INDICATION: Unstable angina in a patient with known CAD, status post prior bypass, status post prior multiple angioplasties including left main stenting and stenting of the [place] circumflex coronary artery in 2014 and a more recent stenting of the left main coronary artery September of 2019, who presented to our emergency room with chest pain and had significant EKG changes suggestive of acute coronary syndrome. Due to this, I advised him to undergo cardiac catheterization. PROCEDURE NOTE: After obtaining informed consent, left heart catheterization and coronary angiogram were performed via the right femoral artery using standard Karen catheters. Patient tolerated the procedure well without any obvious immediate complications. Patient received moderate conscious sedation. Total sedation time was 30 minutes. The LINARES and the venous graft to the right were engaged using a erlin catheter. FINDINGS: HEMODYNAMICS: Left ventricular end-diastolic pressure is 24 mm. There is no significant gradient across the aortic valve. LEFT VENTRICULOGRAM: Not performed. ANGIOGRAPHIC DATA: LEFT MAIN CORONARY ARTERY: Left main coronary artery divides into circumflex coronary artery and LAD. LAD appears totally occluded in the proximal part. There is an in- stent restenoses within the left main coronary artery and it extends into the circumflex coronary artery. RIGHT CORONARY ARTERY: The right coronary artery shows a chronic subtotal occlusion in the midportion. Venous graft to the right coronary artery appears totally occluded. Venous graft to the ramus intermedius appears occluded and the LINARES to the LAD appears patent. Proximal and distal anastomotic sites are patent and there is good flow into the LAD. CONCLUSION: 1. [place] 3 vessel coronary artery disease with occluded venous graft to the right and ramus intermedius with patent LINARES to LAD. 2. Restenosis involving the left main and the circumflex coronary artery. PLAN: Angiographic data will be reviewed by Dr. Elvira Arora, who performed his prior angioplasty who will hopefully attempt angioplasty of the left main coronary artery. MMODL / IJN: [id number] /
--- NOTE | 2020-08-27 06:23 | P.DS ---
Providers Date of admission: 08/24/20 09:48 Attending physician: Fan Kim MD Consults: 08/24/20 09:48 Consult Physician Urgent Consulting Provider: [facility] Consult Reason/Comments: Unstable angina Do you want consulting provider notified?: Yes Primary care physician: Stated None Hospital Course: Diagnoses: Non-STEMI, status post PCI and stent placement of the left main and proximal circumflex branch Severe ischemic cardiomyopathy, patient was advised LifeVest or placement of AICD by cardiology team, however patient refused and patient was cleared for discharge by cardiology team noncompliance Acute kidney injury troponin came back to normal Leukocytosis, mostly reactive secondary to his cardiac disease, no evidence of infection, no need for antibiotics upon discharge Nicotine dependence History of hypertension, blood pressure currently is low-normal Hyperlipidemia history of CABG and coronary artery disease status post multiple stents Hospital course This is a pleasant 6 years old male with past medical history of coronary artery disease status post bypass surgery and multiple stents, he says that he has a stent placed in [facility], another stent in this hospital and last stent was placed in [place] about one year ago patient states that he does not follow up with shoe planner. Patient was not taking any antiplatelet medication at home and he wasn't follow-up with any doctor. Presents with severe chest pain of one-day duration with no dyspnea. EKG showing no significant ST elevation but he had ST depression and T-wave inversion in the lateral legs and some changes in the inferior leads.Labs showing elevated troponin , First one was negative at 0.028, second one was 0.872, also his creatinine is slightly elevated at 1.3, Back to normal with IV fluid. Patient has been evaluated by shoe planner and underwent urgent cardiac cath, and is status post stent placement to the ostial and mid distal left main and proximal circumflex Postoperatively this chest pain improved and became asymptomatic. Echocardiogram showing severe LV function impairment with severe global hypokinesia Ejection fraction is less than 20%. patient was advised LifeVest or placement of AICD by cardiology team, however patient kept refusing, risk of noncompliance including but not limited to cardiac arrhythmia and/or are explained extensively especially by cardiology team Patient remained clinically stable with no new symptoms. Eventually patient was cleared for discharge by cardiology team Problems and management plan were discussed with the patient and he verbalized understanding and acceptance Patient was found stable and can be discharged home however he needs follow-up as an outpatient. Patient was instructed to follow up with PCP within one week and patient agrees. Patient does not have PCP, [facility] and he agreed to take the contact information and contact one of them for follow-up Patient agrees with the appointments made for him with Dr. Luo on 09/05 and states he will follow-up. Importance of it adherence to therapy including antiplatelet medication of aspirin and Brilinta are explained to him extensively and risk of non- compliance explained including but not limited to risk of recurrent heart attack and/or and he verbalized understanding and acceptance Gen: patient is a AAOx3, no distress CVS: S1-S2, RRR, no murmur Lungs: B/L CTA, no wheezing Abdomen: soft, no distention, no tenderness, positive bowel sounds Extremity: no leg edema or induration Time spent more than 35 minutes Plan - Discharge Summary Discharge Rx Participant: No New Discharge Prescriptions: New Spironolactone [Aldactone] 25 mg PO DAILY #30 tab Aspirin 81 mg PO DAILY #30 chew Ticagrelor [Brilinta] 90 mg PO BID #60 tab Losartan [Cozaar] 12.5 mg PO HS #30 tab Furosemide [Lasix] 20 mg PO DAILY #30 tab Atorvastatin [Lipitor] 80 mg PO HS #30 tab Metoprolol Tartrate [Lopressor] 25 mg PO BID #60 tab Nitroglycerin Sl Tabs [Nitrostat] 0.4 mg SUBLINGUAL Q5M PRN #20 tab PRN Reason: Chest Pain Discharge Medication List Aspirin 81 mg PO DAILY #30 chew 08/26/20 [Rx] Atorvastatin [Lipitor] 80 mg PO HS #30 tab 08/26/20 [Rx] Furosemide [Lasix] 20 mg PO DAILY #30 tab 08/26/20 [Rx] Losartan [Cozaar] 12.5 mg PO HS #30 tab 08/26/20 [Rx] Metoprolol Tartrate [Lopressor] 25 mg PO BID #60 tab 08/26/20 [Rx] Nitroglycerin Sl Tabs [Nitrostat] 0.4 mg SUBLINGUAL Q5M PRN #20 tab 08/26/20 [Rx] Spironolactone [Aldactone] 25 mg PO DAILY #30 tab 08/26/20 [Rx] Ticagrelor [Brilinta] 90 mg PO BID #60 tab 08/26/20 [Rx] Follow up Appointment(s)/Referral(s): Elizabeth Akhtar MD [REFERRING] - 1 Week [facility] [NON-STAFF] - 1 Week Andrew Luo MD [STAFF PHYSICIAN] - 09/05/20 9:30 am Patient Instructions/Handouts: Left Heart Catheterization (IP), Safe Use of Antiplatelet Medication (DC) Activity/Diet/Wound Care/Special Instructions: CARDIAC CATH Support your puncture site by applying firm, steady pressure whenever you cough, laugh, sneeze or bear down to have a bowel movement (2-day restriction). Watch for any excessive bruising, active bleeding, a firm knot forming under your skin, extreme tenderness and signs of infection (redness, swelling, fever). Shower daily, do not soak puncture in a tub bath, jacuzzi, pool, [place] etc. for 1 week. This is to prevent risk of infection. Drink plenty of fluids the day of and day after your procedure to flush contrast dye out of your kidneys. Take all medications as directed. Never stop any new medication without your physicians OK. No driving for 2 days after procedure. 10- pound weight lifting restriction for 1 week. Low sodium/low fat diet. Activity limited until follow up appointment with your shoe planner. In case of any problems, please call [facility] @ [phone] Recommended heart healthy diet Activity is restricted until you see your doctor's -Please call your medical insurance provider to define nearby PCP. 2 clinics are suggested to you Dr. Akhtar [facility] please call to make appointment in 1 week Discharge Disposition: HOME SELF-CARE
--- NOTE | 2020-08-27 10:47 | CDI ---
Documentation Clarification Form Date: 08/27/20 From: Chen Macias Phone: If you have a question about this query, please contact Licha Soto, [employer] at [phone] between 8am and 5pm. Admit Date: 08/24/20 Discharge Date: 08/26/20 Patient Name: GOLD ROCA Visit Number: [id number] ATTENTION: The Clinical Documentation Specialists (CDI) and [facility] Coding Staff appreciate your assistance in clarifying documentation. Please respond to the clarification below the line at the bottom and electronically sign. The CDI & [facility] Coding staff will review the response and follow-up if needed. Please note: Queries are made part of the Legal Health Record. If you have any questions, please contact the author of this message via ITS. Dear Dr. Chaivra Sheet, Heart failure is documented in the past medical history of the consult. History/Risk Factors: medication non-compliance, CAD w bypass vessels and [place] vessels occluded, LUISA, COPD, ischemic cardiomyopathy, HLD Clinical Indicators: Severe ischemic cardiomyopathy, patient advised LifeVest or placement of AICD - refused. VS/Pulse OX: T-98, P-67, R-18, BP-104/71, O2-100 (RA) BNP: none Echocardiogram Results: Overall left ventricular systolic function is severely impaired with, an EF < 20%. Chest X Ray: COPD with cardiomegaly correlate for mild chronic interstitial venous congestion or interstitial lung disease. Treatment: Lasix 40 mg IV-once, Aldactone 25 mg PO, Brilinta 90 mg PO BID, Lopressor 25 mg PO BID In your professional opinion, can you please clarify the acuity and type of CHF if known? TYPE Systolic Heart Failure Diastolic Heart Failure Systolic & Diastolic Heart Failure ACUITY Acute Chronic Acute on Chronic Heart Failure Unable to Determine Other, please specify pt has mild dyspnea , with ischemic cardiomyopathy related to his recent heart attack during this admission, my be he has some elements of acute new chf, BUT pt was with no dyspnea on discharge i.e he was not on heart failure upon discharge MTDD
== END 2020-08-26 12:56 | disposition home or self-care (01) | DRG 246 ==
LOC: EC 07:59 → 3SCARD 09:48 → 2SICU 15:10 → 3NCARDOBS 15:31 → 3SCARD 15:49
PROVIDERS: ADMIT Internal Medicine; ATTEND Internal Medicine
PROC: 027034Z Dilation of Coronary Artery, One Artery with Drug-eluting Intraluminal Device, Percutaneous Approach (ICD-10-PCS; principal; 2020-08-24 10:00)
PROC: 3E033XZ Introduction of Vasopressor into Peripheral Vein, Percutaneous Approach (ICD-10-PCS; principal; 2020-08-24 10:00)
PROC: 4A023N7 Measurement of Cardiac Sampling and Pressure, Left Heart, Percutaneous Approach (ICD-10-PCS; 2020-08-24 10:00)
PROC: B2111ZZ Fluoroscopy of Multiple Coronary Arteries using Low Osmolar Contrast (ICD-10-PCS; 2020-08-24 10:00)
PROC: B2131ZZ Fluoroscopy of Multiple Coronary Artery Bypass Grafts using Low Osmolar Contrast (ICD-10-PCS; 2020-08-24 10:00)
DX: T82.855A Stenosis of coronary artery stent, initial encounter (principal); I21.4 Non-ST elevation (NSTEMI) myocardial infarction; I47.2 Ventricular tachycardia; N17.9 Acute kidney failure, unspecified; I31.3 Pericardial effusion (noninflammatory); I25.710 Atherosclerosis of autologous vein coronary artery bypass graft(s) with unstable angina pectoris; I25.110 Atherosclerotic heart disease of native coronary artery with unstable angina pectoris; I11.0 Hypertensive heart disease with heart failure; I50.9 Heart failure, unspecified; J44.9 Chronic obstructive pulmonary disease, unspecified; I25.5 Ischemic cardiomyopathy; I25.2 Old myocardial infarction; D72.829 Elevated white blood cell count, unspecified; E78.5 Hyperlipidemia, unspecified; T50.906A Underdosing of unspecified drugs, medicaments and biological substances, initial encounter; Z91.128 Patient's intentional underdosing of medication regimen for other reason; F17.210 Nicotine dependence, cigarettes, uncomplicated; Z71.6 Tobacco abuse counseling; Z86.74 Personal history of sudden cardiac arrest; Z91.19 Patient's noncompliance with other medical treatment and regimen; Z95.1 Presence of aortocoronary bypass graft; Z82.49 Family history of ischemic heart disease and other diseases of the circulatory system; Z86.73 Personal history of transient ischemic attack (TIA), and cerebral infarction without residual deficits; Z83.3 Family history of diabetes mellitus
CPT/HCPCS: 36415; 71045; 71046; 80048; 80053; 80061; 83735; 84484; 85025; 85027; 85610; 85730; 93005; 93306; 93458; 96365; 96366; 96375; 96376; 99291

== ENCOUNTER 2020-09-23 16:57 | Inpatient (IN) | payer OTHER ==
--- NOTE | 2020-09-23 18:14 | XR ---
EXAMINATION TYPE: XR chest 2V DATE OF EXAM: 09/23/2020 COMPARISON: 08/25/2020 HISTORY: Short of breath TECHNIQUE: Single view FINDINGS: Heart is enlarged. There is blunting of the costophrenic angles more on the right side. The re is mild pulmonary congestion. There are sternal wires. Bony thorax is intact. IMPRESSION: There is evidence for mild heart failure with increased right pleural effusion compared t o recent exam. Pulmonary congestion unchanged. Right lower lobe pneumonia is possible.
--- NOTE | 2020-09-23 19:23 | ED ---
General Adult HPI - General Chief complaint: Shortness of Breath Stated complaint: SOB Time Seen by Provider: 09/23/20 18:41 Source: patient Mode of arrival: ambulatory Limitations: no limitations - History of Present Illness Initial comments: Dictation was produced using [employer] dictation software. please excuse any grammatical, word or spelling errors. This patient was cared for during a federal and state declared state of emergency secondary to Covid 19 Chief Complaint: 60-year-old male presents with 1 month of shortness of breath. History of Present Illness: A 60-year-old male who presents today with 1 month of shortness of breath. Patient has known history of heart failure. States that his symptoms have been ongoing since a coronary artery stent was placed one month ago by Dr. Luo. At the time he was recommended to get pacemaker according to patient. He states he did not get it. He is unhappy that he didn't receive much education during his hospital stay then. States that since then he's been having worsening shortness of breath especially with ambulating. States that he can't even walk to the mailbox without feeling winded. Vision reports a mild cough. Denies any fever or constitutional symptoms. No production of sputum. He does intimately have runny nose. No pain complaints. The ROS documented in this emergency department record has been reviewed and confirmed by me. Those systems with pertinent positive or negative responses have been documented in the HPI. All other systems are other negative and/or noncontributory. PHYSICAL EXAM: General Impression: Alert and oriented x3, not in acute distress HEENT: Normocephalic atraumatic, extra-ocular movements intact, pupils equal and reactive to light bilaterally, mucous membranes moist. Cardiovascular: Heart regular rate and rhythm Chest: Able to complete full sentences, no retractions, no tachypnea, mild crackles to the left lower lung base on auscultation of the lungs Abdomen: abdomen soft, non-tender, non-distended, no organomegaly Musculoskeletal: Pulses present and equal in all extremities, no peripheral edema Motor: no focal deficits noted Neurological: CN II-XII grossly intact, no focal motor or sensory deficits noted Skin: Intact with no visualized rashes Psych: Normal affect and mood ED course: 60 y old male presents today with 1 month history of dyspnea. Vital signs upon arrival are within acceptable limits. Laboratory evaluation obtained. CBC remarkable. Coag panel is unremarkable. Metabolic panel shows potassium 5.2 with slight hemolysis. Troponin is elevated 0.039 which is below his baseline. Pending brain natruretic peptide. Patient did not fill comfortable going home. Clinical presentation concerning for heart failure exacerbation. Patient be admitted observation. He is given 40 mg of IV Lasix. Case is discussed with Devorah Akers is willing to accept [facility]. Cardiology will be consulted. Patient is agreeable with plan. EKG interpretation: Ventricular rate 81, sinus rhythm,. Interval 184, QRS 90, QTC 485. No [place] prolongation, no QTC prolongation, no ST or T-wave changes noted. EKG compared to murmur 02/08/2020 showing no changes. Overall, this EKG is unremarkable - Related Data Previous Rx's Medication Instructions Recorded Aspirin 81 mg PO DAILY #30 chew 08/26/20 Atorvastatin [Lipitor] 80 mg PO HS #30 tab 08/26/20 Furosemide [Lasix] 20 mg PO DAILY #30 tab 08/26/20 Losartan [Cozaar] 12.5 mg PO HS #30 tab 08/26/20 Metoprolol Tartrate [Lopressor] 25 mg PO BID #60 tab 08/26/20 Nitroglycerin Sl Tabs [Nitrostat] 0.4 mg SUBLINGUAL Q5M PRN #20 tab 08/26/20 Spironolactone [Aldactone] 25 mg PO DAILY #30 tab 08/26/20 Allergies Allergy/AdvReac Type Severity Reaction Status Date / Time No Known Allergies Allergy Verified 09/23/20 19:46 Review of Systems ROS Statement: Those systems with pertinent positive or pertinent negative responses have been documented in the HPI. ROS Other: All systems not noted in ROS Statement are negative. Past Medical History Past Medical History: Coronary Artery Disease (CAD), Heart Failure, COPD, CVA/TIA, Hyperlipidemia, Hypertension, Myocardial Infarction ([place]) Additional Past Medical History / Comment(s): Pt states he had a CVA during cardiac cath/stent in 2009 and has alittle R hand numbness, R leg pain/numbness if stands too long. Last Myocardial Infarction Date:: 2014 History of Any Multi-Drug Resistant Organisms: None Reported Past Surgical History: Coronary Bypass/CABG, Heart Catheterization With Stent Additional Past Surgical History / Comment(s): 2003 triple vessel CABG at [facility] in [place], PCI/stents-some done im [facility]. Past Anesthesia/Blood Transfusion Reactions: No Reported Reaction Date of Last Stent Placement:: 2014 Past Psychological History: No Psychological Hx Reported Smoking Status: Former smoker Past Alcohol Use History: None Reported Past Drug Use History: None Reported - Past Family History Father Family Medical History: Coronary Artery Disease (CAD) Additional Family Medical History / Comment(s): Father had CABG Mother Family Medical History: Coronary Artery Disease (CAD), Diabetes Mellitus Additional Family Medical History / Comment(s): Mother after CABG at age 62yrs. General Exam Limitations: no limitations Course Vital Signs 09/23/20 09/23/20 17:12 19:32 Temperature 97.9 F Pulse Rate 83 Respiratory 18 18 Rate Blood Pressure 117/79 O2 Sat by Pulse 99 Oximetry Medical Decision Making - Lab Data Result diagrams: 09/23/20 19:42 09/23/20 19:42 Lab Results 09/23/20 09/23/20 09/23/20 Range/Units 19:42 19:42 19:42 WBC 8.3 (3.8-10.6) k/uL RBC 5.55 (4.30-5.90) m/uL Hgb 16.5 (13.0-17.5) gm/dL Hct 52.1 (39.0-53.0) % MCV 93.9 (80.0-100.0) fL MCH 29.7 (25.0-35.0) pg MCHC 31.6 (31.0-37.0) g/dL RDW 14.3 (11.5-15.5) % Plt Count 239 (150-450) k/uL MPV 8.6 Neutrophils % 74 % Lymphocytes % 14 % Monocytes % 9 % Eosinophils % 1 % Basophils % 1 % Neutrophils # 6.1 (1.3-7.7) k/uL Lymphocytes # 1.2 (1.0-4.8) k/uL Monocytes # 0.7 (0-1.0) k/uL Eosinophils # 0.1 (0-0.7) k/uL Basophils # 0.1 (0-0.2) k/uL Hypochromasia Slight PT 12.5 H (9.0-12.0) sec INR 1.2 H (<1.2) APTT 24.9 (22.0-30.0) sec Sodium 139 (137-145) mmol/L Potassium 5.2 H (3.5-5.1) mmol/L Chloride 105 (98-107) mmol/L Carbon Dioxide 27 (22-30) mmol/L Anion Gap 7 mmol/L BUN 19 (9-20) mg/dL Creatinine 0.76 (0.66-1.25) mg/dL Est GFR (CKD-EPI)AfAm >90 (>60 ml/min/1.73 sqM) Est GFR (CKD-EPI)NonAf >90 (>60 ml/min/1.73 sqM) Glucose 89 (74-99) mg/dL Plasma Lactic Acid Hunter (0.7-2.0) mmol/L Calcium 9.1 (8.4-10.2) mg/dL Total Bilirubin 1.2 (0.2-1.3) mg/dL AST 35 (17-59) U/L ALT 37 (4-49) U/L Alkaline Phosphatase 62 (38-126) U/L Troponin I (0.000-0.034) ng/mL Total Protein 6.9 (6.3-8.2) g/dL Albumin 3.8 (3.5-5.0) g/dL 09/23/20 09/23/20 Range/Units 19:42 19:42 WBC (3.8-10.6) k/uL RBC (4.30-5.90) m/uL Hgb (13.0-17.5) gm/dL Hct (39.0-53.0) % MCV (80.0-100.0) fL MCH (25.0-35.0) pg MCHC (31.0-37.0) g/dL RDW (11.5-15.5) % Plt Count (150-450) k/uL MPV Neutrophils % % Lymphocytes % % Monocytes % % Eosinophils % % Basophils % % Neutrophils # (1.3-7.7) k/uL Lymphocytes # (1.0-4.8) k/uL Monocytes # (0-1.0) k/uL Eosinophils # (0-0.7) k/uL Basophils # (0-0.2) k/uL Hypochromasia PT (9.0-12.0) sec INR (<1.2) APTT (22.0-30.0) sec Sodium (137-145) mmol/L Potassium (3.5-5.1) mmol/L Chloride (98-107) mmol/L Carbon Dioxide (22-30) mmol/L Anion Gap mmol/L BUN (9-20) mg/dL Creatinine (0.66-1.25) mg/dL Est GFR (CKD-EPI)AfAm (>60 ml/min/1.73 sqM) Est GFR (CKD-EPI)NonAf (>60 ml/min/1.73 sqM) Glucose (74-99) mg/dL Plasma Lactic Acid Hunter 1.5 (0.7-2.0) mmol/L Calcium (8.4-10.2) mg/dL Total Bilirubin (0.2-1.3) mg/dL AST (17-59) U/L ALT (4-49) U/L Alkaline Phosphatase (38-126) U/L Troponin I 0.039 H* (0.000-0.034) ng/mL Total Protein (6.3-8.2) g/dL Albumin (3.5-5.0) g/dL Disposition Clinical Impression: Heart failure Dis[facility] Condition: Fair Referrals: None,Stated [Primary Care Provider] - 1-2 days Decision Time: 21:00
[2020-09-23 20:02] LABS: Basophils # (A) 0.1 k/uL (0-0.2); Basophils % (A) 1 %; Eosinophils # (A) 0.1 k/uL (0-0.7); Eosinophils % (A) 1 %; HCT 52.1 % (39.0-53.0); HGB 16.5 gm/dL (13.0-17.5); Hypochromasia Slight; Lymphocytes # (A) 1.2 k/uL (1.0-4.8); Lymphocytes % (A) 14 %; MCH 29.7 pg (25.0-35.0); MCHC 31.6 g/dL (31.0-37.0); MCV 93.9 fL (80.0-100.0); Mean Platelet Volume 8.6; Monocytes # (A) 0.7 k/uL (0-1.0); Monocytes % (A) 9 %; Neutrophils # (A) 6.1 k/uL (1.3-7.7); Neutrophils % (A) 74 %; Platelet Count 239 k/uL (150-450); RBC 5.55 m/uL (4.30-5.90); RDW 14.3 % (11.5-15.5); WBC 8.3 k/uL (3.8-10.6)
[2020-09-23 20:07] LABS: INR 1.2 (<1.2); Partial Thromboplastin Time 24.9 sec (22.0-30.0); Prothrombin Time 12.5 sec (9.0-12.0)
[2020-09-23 20:10] LABS: ALT 37 U/L (4-49); AST 35 U/L (17-59); African American GFR (CKD) >90 (>60 ml/min/1.73 sqM); Albumin 3.8 g/dL (3.5-5.0); Alkaline Phosphatase 62 U/L (38-126); Anion Gap 7 mmol/L; Blood Urea Nitrogen 19 mg/dL (9-20); Calcium 9.1 mg/dL (8.4-10.2); Carbon Dioxide 27 mmol/L (22-30); Chloride 105 mmol/L (98-107); Glucose 89 mg/dL (74-99); Non-African American GFR(CKD) >90 (>60 ml/min/1.73 sqM); Sodium 139 mmol/L (137-145); Total Bilirubin 1.2 mg/dL (0.2-1.3); Total Protein 6.9 g/dL (6.3-8.2)
[2020-09-23 20:13] LABS: Potassium 5.2 mmol/L (3.5-5.1)
[2020-09-23] MEDS ORDERED: FUROSEMIDE 10 MG/ML 4 ML VIAL IV STA (20:51)
[2020-09-23] MEDS ORDERED: FUROSEMIDE 10 MG/ML 4 ML VIAL IV SCH (21:00)
[2020-09-23] MEDS: SODIUM CHLORIDE 0.9% 1,000 ML IV SCH (21:41)
[2020-09-24] MEDS: FUROSEMIDE 10 MG/ML 4 ML VIAL IV SCH ×2 (08:46→20:42)
[2020-09-24] MEDS ORDERED: CLOPIDOGREL 75 MG TAB PO STA (11:39)
[2020-09-24] MEDS: SPIRONOLACTONE 25 MG TAB PO SCH (11:41)
[2020-09-24] MEDS: ASPIRIN 81 MG PO SCH (11:41)
[2020-09-24] MEDS: METOPROLOL TARTRATE 25 MG TAB PO SCH ×2 (11:41→20:42)
--- NOTE | 2020-09-24 11:53 | P.CRDCN ---
History of Present Illness Consult date: 09/24/20 History of present illness: CHIEF COMPLAINT: shortness of breath HISTORY OF PRESENT ILLNESS: This is a 60-year old male with a past medical history significant for coronary artery disease with previous CABG and multivessel stenting, COPD, hypertension, hyperlipidemia, and congestive heart failure. Patient follows in the office with Dr. Luo. We have been asked to see the patient in consultation for shortness of breath. patient was recently hospitalized in August and underwent cardiac catheterization. He had stent placement to the ostial and proximal mid distal left main and proximal circumflex by Dr. Arora. Echocardiogram completed at that time revealed ejection fraction less than 20%. The patient states he has been feeling short of breath for the past month. He reports increased lower extremity edema. Denae ent states he gets extremely winded walking short distances. He also reports he has not been able to tolerate his Brilinta and has not been taking it. he denies any chest pain or pressure. Denies dizziness or lightheadedness. DIAGNOSTICS: EKG reveals sinus rhythm Chest xray evidence for mild heart failure with increased right pleural effusion compared to recent exam. Pulmonary congestion unchanged. Right lower lobe pneumonia is possible. Laboratory data: WBC 8.3. Hemoglobin 16.5. Platelet count 239. Sodium 139. potassium 5.2. BUN 19. Creatinine 0.76. Lactic acid 1.5. Troponin 0.039. 0.040. 0.035. BNP 9240. Current home cardiac medications include Aldactone 25 mg daily, metoprolol 25 mg twice a day, losartan 12.5 mg daily, Lasix 20 mg daily, Lipitor 80 mg daily, and aspirin 81 mg daily REVIEW OF SYSTEMS: At the time of my exam: CONSTITUTIONAL: Denies fever or chills. HEENT: Denies blurred vision, vision changes, or eye pain. Denies hemoptysis CARDIOVASCULAR: Denies chest pain, orthopnea, PND or palpitations RESPIRATORY: Reports shortness of breath. GASTROINTESTINAL: Denies abdominal pain. Denies nausea or vomiting. HEMATOLOGIC: Denies bleeding disorders. GENITOURINARY: Denies any blood in urine. SKIN: Denies pruitis. Denies rash. PHYSICAL EXAM: VITAL SIGNS: Reviewed. GENERAL: Well-developed in no acute distress. HEENT: Head is normocephalic. Pupils are equal, round. Sclerae anicteric. Mucous membranes of the mouth are moist. Neck supple. No JVD or thyromegaly LUNGS: Respirations even and unlabored. Lungs diminished with rales to bilateral bases HEART: Regular rate and rhythm. S1 and S2 heard. ABDOMEN: Soft. Nondistended. Nontender. EXTREMITIES: Normal range of motion. No clubbing or cyanosis. Peripheral pulses intact. 2+ bilateral lower extremity edema NEUROLOGIC: Awake and alert. Oriented x 3. ASSESSMENT: Shortness of breath Acute exacerbation of chronic systolic congestive heart failure, EF less than 20%, BNP 9240 Ischemic cardiomyopathy, EF less than 20% Coronary artery disease with previous CABG and multivessel stenting, most recently in August 2020 Hypertension Hyperlipidemia COPD PLAN: Resume home cardiac medications Continue IV Lasix: 40 mg IV every 12 hours Monitor kidney function Daily weights Obtain limited echocardiogram to assess LV function Further recommendations pending patient's course Nurse practitioner note has been reviewed by physician. Signing provider agrees with the documented findings, assessment, and plan of care. Past Medical History Past Medical History: Coronary Artery Disease (CAD), Heart Failure, COPD, CVA/TIA, Hyperlipidemia, Hypertension, Myocardial Infarction ([place]) Additional Past Medical History / Comment(s): Pt states he had a CVA during cardiac cath/stent in 2009 and has alittle R hand numbness, R leg pain/numbness if stands too long. Last Myocardial Infarction Date:: 2019 History of Any Multi-Drug Resistant Organisms: None Reported Past Surgical History: Coronary Bypass/CABG, Heart Catheterization With Stent Additional Past Surgical History / Comment(s): 2004 triple vessel CABG at [facility] in [place], PCI/stents-some done im [facility]. Past Anesthesia/Blood Transfusion Reactions: No Reported Reaction Date of Last Stent Placement:: 2019 Past Psychological History: No Psychological Hx Reported Additional Psychological History / Comment(s): Pt resides alone. He is independent. Smoking Status: Former smoker Past Alcohol Use History: None Reported Additional Past Alcohol Use History / Comment(s): Pt states he started smoking at age 16yrs aprox 1 PPD quit 2 months ago. He states he used to drink a few drinks a couple days a week, but hasnt drank in approximately 3 years. Past Drug Use History: None Reported - Past Family History Father Family Medical History: Coronary Artery Disease (CAD) Additional Family Medical History / Comment(s): Father had CABG Mother Family Medical History: Coronary Artery Disease (CAD), Diabetes Mellitus Additional Family Medical History / Comment(s): Mother after CABG at age 62yrs. Medications and Allergies Home Medications Medication Instructions Recorded Confirmed Type Aspirin 81 mg PO DAILY #30 chew 08/26/20 09/23/20 Rx Atorvastatin [Lipitor] 80 mg PO HS #30 tab 08/26/20 09/23/20 Rx Furosemide [Lasix] 20 mg PO DAILY #30 tab 08/26/20 09/23/20 Rx Losartan [Cozaar] 12.5 mg PO HS #30 tab 08/26/20 09/23/20 Rx Metoprolol Tartrate [Lopressor] 25 mg PO BID #60 tab 08/26/20 09/23/20 Rx Nitroglycerin Sl Tabs [Nitrostat] 0.4 mg SUBLINGUAL Q5M PRN #20 tab 08/26/20 09/23/20 Rx Spironolactone [Aldactone] 25 mg PO DAILY #30 tab 08/26/20 09/23/20 Rx Allergies Allergy/AdvReac Type Severity Reaction Status Date / Time No Known Allergies Allergy Verified 09/23/20 19:46 Physical Exam Vitals: Vital Signs Temp Pulse Pulse Resp BP BP Pulse Ox 09/24/20 08:00 97.6 F 76 20 116/81 99 09/24/20 04:00 74 20 106/78 98 09/24/20 02:00 74 20 09/23/20 23:37 77 20 09/23/20 23:36 98.1 F 77 20 122/84 97 09/23/20 21:57 98.4 F 85 18 118/80 98 09/23/20 21:50 80 19 117/88 100 09/23/20 19:32 18 09/23/20 17:12 97.9 F 83 18 117/79 99 Intake and Output 09/23/20 09/24/20 09/24/20 22:59 06:59 14:59 Intake Total 240 Output Total 1250 Balance 240 -1250 Intake: Oral 240 Output: Urine 1250 Other: Voiding Method Urinal Urinal Weight 82.554 kg Results 09/23/20 19:42 09/23/20 19:42 Cardiac Enzymes 09/23/20 09/23/20 09/23/20 Range/Units 19:42 19:42 22:39 AST 35 (17-59) U/L Troponin I 0.039 H* 0.040 H* (0.000-0.034) ng/mL 09/24/20 Range/Units 01:29 AST (17-59) U/L Troponin I 0.035 H* (0.000-0.034) ng/mL Coagulation 09/23/20 Range/Units 19:42 PT 12.5 H (9.0-12.0) sec APTT 24.9 (22.0-30.0) sec CBC 09/23/20 Range/Units 19:42 WBC 8.3 (3.8-10.6) k/uL RBC 5.55 (4.30-5.90) m/uL Hgb 16.5 (13.0-17.5) gm/dL Hct 52.1 (39.0-53.0) % Plt Count 239 (150-450) k/uL Comprehensive Metabolic Panel 09/23/20 Range/Units 19:42 Sodium 139 (137-145) mmol/L Potassium 5.2 H (3.5-5.1) mmol/L Chloride 105 (98-107) mmol/L Carbon Dioxide 27 (22-30) mmol/L BUN 19 (9-20) mg/dL Creatinine 0.76 (0.66-1.25) mg/dL Glucose 89 (74-99) mg/dL Calcium 9.1 (8.4-10.2) mg/dL AST 35 (17-59) U/L ALT 37 (4-49) U/L Alkaline Phosphatase 62 (38-126) U/L Total Protein 6.9 (6.3-8.2) g/dL Albumin 3.8 (3.5-5.0) g/dL Current Medications Generic Name Dose Route Start Last Admin Trade Name Freq PRN Reason Stop Dose Admin Aspirin 81 mg 09/24/20 10:45 Aspirin 81 Mg PO DAILY DANILO Atorvastatin Calcium 80 mg 09/24/20 21:00 Atorvastatin 80 Mg Tab PO HS DANILO Furosemide 40 mg 09/24/20 09:00 09/24/20 08:46 Furosemide 10 Mg/Ml 4 Ml Vial IV 40 mg Q12H DANILO Administration Sodium Chloride 1,000 mls @ 20 mls/hr 09/23/20 21:00 09/23/20 21:41 Saline 0.9% IV 20 mls/hr .Q24H DANILO Administration Losartan Potassium 12.5 mg 09/24/20 21:00 Losartan 25 Mg Tab PO HS DANILO Metoprolol Tartrate 25 mg 09/24/20 10:45 Metoprolol Tartrate 25 Mg Tab PO BID DANILO Spironolactone 25 mg 09/24/20 10:45 Spironolactone 25 Mg Tab PO DAILY DANILO Intake and Output 09/23/20 09/24/20 09/24/20 22:59 06:59 14:59 Intake Total 240 Output Total 1250 Balance 240 -1250 Intake: Oral 240 Output: Urine 1250 Other: Voiding Method Urinal Urinal Weight 82.554 kg 09/23/20 19:42 09/23/20 19:42
--- NOTE | 2020-09-24 15:01 | ECHOF ---
Referral Reason:LV function MEASUREMENTS -------- HEIGHT: 177.8 cm WEIGHT: 82.1 kg BP: 116/81 IVSd: 0.8 cm (0.6 - 1.1) LVIDd: 6.6 cm (3.9 - 5.3) LVPWd: 1.4 cm (0.6 - 1.1) IVSs: 0.8 cm LVIDs: 6.1 cm LVPWs: 1.6 cm FINDINGS -------- Sinus rhythm. Limited Study The left ventricle is moderately dilated. Left ventricular wall thickness is normal. There is sev ere global hypokinesis of LV . Overall left ventricular systolic function is severely impaired with , an EF < 20%. CONCLUSIONS -------- 1. The left ventricle is moderately dilated. 2. Left ventricular wall thickness is normal. 3. There is severe global hypokinesis of LV . 4. Overall left ventricular systolic function is severely impaired with, an EF < 20%. OPTICS TEST TECHNICIAN: Allison Haney [facility]
[2020-09-24] MEDS: ATORVASTATIN 80 MG TAB PO SCH (20:42)
[2020-09-24] MEDS: LOSARTAN 25 MG TAB PO SCH (20:42)
[2020-09-24] MEDS: SODIUM CHLORIDE 0.9% 1,000 ML IV SCH (20:52)
--- NOTE | 2020-09-24 21:26 | P.HPIM ---
History of Present Illness H&P Date: 09/24/20 Chief Complaint: SOB This patient was cared for during of federal and state declared state of emergency secondary to COVID 19. Mr. Rosenberg is a 60-year-old male with a past medical history of coronary artery disease, congestive heart failure, COPD, coming to the hospital with a chief complaint of difficulty in breathing. Patient was recently hospitalized last month and underwent cardiac catheterization with a stent placement to the ostial and proximal and mid distal left main and proximal. Echocardiogram revealed ejection fraction of 20%. Patient states that since discharge, he has been slowly having difficulty in breathing. But for the past couple of days even walking in the house is making him feel short of breath. Patient is not taking Brilinta. Patient denies having any fevers chills or rigors. No cough. He denies having any orthopnea or PND. He is not sure of about low salt intake and fluid restriction. In the ER patient had labs done showing slightly elevated troponin at 0.039, 0.040 chest x-ray showing evidence of mild heart failure with increased right pleural effusion compared to recent exam. Right lower lobe pneumonia is possible. So the patient is admitted for further management. Review of Systems Constitutional: Patient denies any fever or chills . No generalized weakness or weight loss. HEENT: Denies blurred vision, vision changes, or eye pain. GI: Patient denied nausea vomiting and diarrhea and abdominal pain. Cardiovascular:As per HPI Respiratory: patient denied any cough or sputum production. Neurologic: Patient denied any numbness or tingling or headache. Musculoskeletal: Patient denies any complaints of joint swelling or deformity. Skin: No rash Psychiatric: No anxiety or depression Endocrine: No heat or cold intolerance. No recent weight gain. Genitourinary: No dysuria or hematuria. All other 14 point ROS negative except the above Past Medical History Past Medical History: Coronary Artery Disease (CAD), Heart Failure, COPD, CVA/TIA, Hyperlipidemia, Hypertension, Myocardial Infarction ([place]) Additional Past Medical History / Comment(s): Pt states he had a CVA during cardiac cath/stent in 2009 and has alittle R hand numbness, R leg pain/numbness if stands too long. Last Myocardial Infarction Date:: 2019 History of Any Multi-Drug Resistant Organisms: None Reported Past Surgical History: Coronary Bypass/CABG, Heart Catheterization With Stent Additional Past Surgical History / Comment(s): 2003 triple vessel CABG at [facility] in [place], PCI/stents-some done im [facility]. Past Anesthesia/Blood Transfusion Reactions: No Reported Reaction Date of Last Stent Placement:: 2019 Past Psychological History: No Psychological Hx Reported Additional Psychological History / Comment(s): Pt resides alone. He is independent. Smoking Status: Former smoker Past Alcohol Use History: None Reported Additional Past Alcohol Use History / Comment(s): Pt states he started smoking at age 16yrs aprox 1 PPD quit 2 months ago. He states he used to drink a few drinks a couple days a week, but hasnt drank in approximately 3 years. Past Drug Use History: None Reported - Past Family History Father Family Medical History: Coronary Artery Disease (CAD) Additional Family Medical History / Comment(s): Father had CABG Mother Family Medical History: Coronary Artery Disease (CAD), Diabetes Mellitus Additional Family Medical History / Comment(s): Mother after CABG at age 62yrs. Medications and Allergies Home Medications Medication Instructions Recorded Confirmed Type Aspirin 81 mg PO DAILY #30 chew 08/26/20 09/23/20 Rx Atorvastatin [Lipitor] 80 mg PO HS #30 tab 08/26/20 09/23/20 Rx Furosemide [Lasix] 20 mg PO DAILY #30 tab 08/26/20 09/23/20 Rx Losartan [Cozaar] 12.5 mg PO HS #30 tab 08/26/20 09/23/20 Rx Metoprolol Tartrate [Lopressor] 25 mg PO BID #60 tab 08/26/20 09/23/20 Rx Nitroglycerin Sl Tabs [Nitrostat] 0.4 mg SUBLINGUAL Q5M PRN #20 tab 08/26/20 09/23/20 Rx Spironolactone [Aldactone] 25 mg PO DAILY #30 tab 08/26/20 09/23/20 Rx Allergies Allergy/AdvReac Type Severity Reaction Status Date / Time No Known Allergies Allergy Verified 09/23/20 19:46 Physical Exam Vitals: Vital Signs Temp Pulse Pulse Resp BP BP Pulse Ox 09/24/20 08:00 97.6 F 76 20 116/81 99 09/24/20 04:00 74 20 106/78 98 09/24/20 02:00 74 20 12/04/20 23:37 77 20 09/23/20 23:36 98.1 F 77 20 122/84 97 09/23/20 21:57 98.4 F 85 18 118/80 98 09/23/20 21:50 80 19 117/88 100 09/23/20 19:32 18 09/23/20 17:12 97.9 F 83 18 117/79 99 Intake and Output 09/23/20 09/24/20 09/24/20 22:59 06:59 14:59 Intake Total 240 Output Total 1250 Balance 240 -1250 Intake: Oral 240 Output: Urine 1250 Other: Voiding Method Urinal Urinal Weight 82.554 kg PHYSICAL EXAMINATION: Patient is lying in the bed comfortably, no acute distress, awake alert and oriented.. HEENT: Normocephalic. Neck is supple. Pupils reactive. Nostrils clear. Oral cavi ty is moist. Neck reveals no JVD, carotid bruits, or thyromegaly. CHEST EXAMINATION: Trachea is central. Symmetrical expansion. Bilateral basal crackles. CARDIAC: Normal S1, S2 with no gallops. No murmurs ABDOMEN: Soft. Bowel sounds normal. No organomegaly. No abdominal bruits. Extremities: Bilateral pitting pedal edema Neurologically awake, alert, oriented x3 with well-coordinated movements. No focal deficits noted Psychiatric: Coperative. Nonsuicidal Musculoskeletal: No joint swelling or deformity. Normal range of motion. Results CBC & Chem 7: 09/23/20 19:42 09/23/20 19:42 Labs: Abnormal Lab Results - Last 24 Hours (Table) 09/23/20 09/23/20 09/23/20 Range/Units 19:42 19:42 19:42 PT 12.5 H (9.0-12.0) sec INR 1.2 H (<1.2) Potassium 5.2 H (3.5-5.1) mmol/L Troponin I 0.039 H* (0.000-0.034) ng/mL 09/23/20 09/24/20 Range/Units 22:39 01:29 PT (9.0-12.0) sec INR (<1.2) Potassium (3.5-5.1) mmol/L Troponin I 0.040 H* 0.035 H* (0.000-0.034) ng/mL Thrombosis Risk Factor Assmnt - Choose All That Apply Any of the Below Risk Factors Present?: Yes Each Factor Represents 1 point: Age 41-60 years, Heart failure (<1month), Swollen legs (current) Other Risk Factors: No Other congenital or acquired thrombophilia - If yes, enter type in comment: No Thrombosis Risk Factor Assessment Total Risk Factor Score: 3 Thrombosis Risk Factor Assessment Level: Moderate Risk Assessment and Plan Assessment: ASSESSMENT Acute on chronic congestive systolic heart failure Systolic heart failure with ejection fraction of less than 20% Coronary artery disease status post CABG in the past, status post stenting in August 2020 Hyperkalemia Hypertension Hyperlipidemia COPD History of CVA/TIA Former smoker PLAN : Patient is currently being treated for acute CHF exacerbation, continue with Lasix. Cardiology has been consulted. Patient has been restarted on his home medications. Continue with beta-armando, ARB, statin, aspirin. Patient was not able to tolerate Brilinta. GI DVT prophylaxis. Further recommendations depending on the progress of the patient.
[2020-09-24] MEDS: HEPARIN SODIUM,PORCINE 5,000 UNIT/ML 1 ML VIAL SQ SCH (23:57)
[2020-09-25] MEDS: PANTOPRAZOLE 40 MG TABLET PO SCH (06:11)
[2020-09-25 08:47] LABS: African American GFR (CKD) >90 (>60 ml/min/1.73 sqM); Anion Gap 2 mmol/L; Blood Urea Nitrogen 25 mg/dL (9-20); Calcium 8.4 mg/dL (8.4-10.2); Carbon Dioxide 35 mmol/L (22-30); Chloride 101 mmol/L (98-107); Glucose 82 mg/dL (74-99); Magnesium 1.9 mg/dL (1.6-2.3); Non-African American GFR(CKD) 85 (>60 ml/min/1.73 sqM); Potassium 4.2 mmol/L (3.5-5.1); Sodium 138 mmol/L (137-145)
[2020-09-25 08:54] LABS: Basophils # (A) 0.1 k/uL (0-0.2); Basophils % (A) 1 %; Eosinophils # (A) 0.1 k/uL (0-0.7); Eosinophils % (A) 1 %; HCT 44.2 % (39.0-53.0); HGB 14.3 gm/dL (13.0-17.5); Hypochromasia Slight; Lymphocytes # (A) 0.9 k/uL (1.0-4.8); Lymphocytes % (A) 13 %; MCH 30.6 pg (25.0-35.0); MCHC 32.5 g/dL (31.0-37.0); MCV 94.2 fL (80.0-100.0); Mean Platelet Volume 8.7; Monocytes # (A) 0.8 k/uL (0-1.0); Monocytes % (A) 11 %; Neutrophils # (A) 4.9 k/uL (1.3-7.7); Neutrophils % (A) 72 %; Platelet Count 229 k/uL (150-450); RBC 4.69 m/uL (4.30-5.90); RDW 13.8 % (11.5-15.5); WBC 6.8 k/uL (3.8-10.6)
[2020-09-25] MEDS: FUROSEMIDE 10 MG/ML 4 ML VIAL IV SCH ×2 (08:56→20:14)
[2020-09-25] MEDS: HEPARIN SODIUM,PORCINE 5,000 UNIT/ML 1 ML VIAL SQ SCH ×3 (09:12→21:50)
--- NOTE | 2020-09-25 11:13 | P.PN ---
Subjective Progress Note Date: 09/25/20 CHIEF COMPLAINT: shortness of breath HISTORY OF PRESENT ILLNESS: This is a 60-year old male with a past medical history significant for coronary artery disease with previous CABG and multivessel stenting, COPD, hypertension, hyperlipidemia, and congestive heart failure. Patient follows in the office with Dr. Luo. We have been asked to see the patient in consultation for shortness of breath. patient was recently hospitalized in August and underwent cardiac catheterization. He had stent placement to the ostial and proximal mid distal left main and proximal circumflex by Dr. Arora. Echocardiogram completed at that time revealed ejection fraction less than 20%. The patient states he has been feeling short of breath for the past month. He reports increased lower extremity edema. Patient states he gets extremely winded walking short distances. He also reports he has not been able to tolerate his Brilinta and has not been taking it. he denies any chest pain or pressure. Denies dizziness or lightheadedness. 09/25/2020 Patient examined this morning at the bedside. Patient states his shortness of breath is slightly improved from yesterday. He denies chest pain or pressure. He remains on IV Lasix 40 g every 12 hours. Creatinine 0.97 today. Echocardiogram reveals ejection fraction less than 20%. PHYSICAL EXAM: VITAL SIGNS: Reviewed. GENERAL: Well-developed in no acute distress. HEENT: Head is normocephalic. Pupils are equal, round. Sclerae anicteric. Mucous membranes of the mouth are moist. Neck supple. No JVD or thyromegaly LUNGS: Respirations even and unlabored. Lungs diminished. HEART: Regular rate and rhythm. S1 and S2 heard. ABDOMEN: Soft. Nondistended. Nontender. EXTREMITIES: Normal range of motion. No clubbing or cyanosis. Peripheral pulses intact. 1+ bilateral lower extremity edema NEUROLOGIC: Awake and alert. Oriented x 3. ASSESSMENT: Shortness of breath Acute exacerbation of chronic systolic congestive heart failure, EF less than 20%, BNP 9240 Ischemic cardiomyopathy, EF less than 20% Coronary artery disease with previous CABG and multivessel stenting, most recently in August 2020 Hypertension Hyperlipidemia COPD PLAN: Continue current dose of IV Lasix Monitor kidney function Daily weights Further recommendations pending patient's course Nurse practitioner note has been reviewed by physician. Signing provider agrees with the documented findings, assessment, and plan of care. Objective - Vital Signs Vital signs: Vital Signs Temp 97.7 F 09/25/20 04:00 Pulse 68 09/25/20 04:00 Resp 18 09/25/20 04:00 BP 95/53 09/25/20 04:00 Pulse Ox 93 L 09/25/20 04:00 Intake & Output 09/24/20 09/25/20 09/25/20 18:59 06:59 18:59 Intake Total 800 900 180 Output Total 600 Balance 200 900 180 Weight 79.6 kg Intake: Oral 800 900 180 Output: Urine 600 Other: Voiding Method Urinal Urinal # Voids 2 0 # Bowel Movements 0 - Labs CBC & Chem 7: 09/25/20 07:35 09/25/20 07:35 Labs: Abnormal Lab Results - Last 24 Hours (Table) 09/25/20 09/25/20 Range/Units 07:35 07:35 Lymphocytes # 0.9 L (1.0-4.8) k/uL Carbon Dioxide 35 H (22-30) mmol/L BUN 25 H (9-20) mg/dL
[2020-09-25 11:59] VITALS: BMI 25.2
[2020-09-25] MEDS: CLOPIDOGREL 75 MG TAB PO SCH (12:30)
[2020-09-25] MEDS: ASPIRIN 81 MG PO SCH (12:30)
[2020-09-25] MEDS: METOPROLOL TARTRATE 25 MG TAB PO SCH ×2 (12:31→20:14)
[2020-09-25] MEDS: SPIRONOLACTONE 25 MG TAB PO SCH (12:31)
[2020-09-25] MEDS: ATORVASTATIN 80 MG TAB PO SCH (20:14)
[2020-09-25] MEDS: LOSARTAN 25 MG TAB PO SCH (20:15)
[2020-09-25] MEDS: SODIUM CHLORIDE 0.9% 1,000 ML IV SCH (20:18)
--- NOTE | 2020-09-25 23:28 | P.PN ---
Subjective Progress Note Date: 09/25/20 Principal diagnosis: CHF Exacerbation Mr. Rosenberg is a 60-year-old male with a past medical history of coronary artery disease, congestive heart failure, COPD, coming to the hospital with a chief complaint of difficulty in breathing. Patient was recently hospitalized last month and underwent cardiac catheterization with a stent placement to the ostial and proximal and mid distal left main and proximal. Echocardiogram revealed ejection fraction of 20%. Patient states that since discharge, he has been slowly having difficulty in breathing. But for the past couple of days even walking in the house is making him feel short of breath. Patient is not taking Brilinta. Patient denies having any fevers chills or rigors. No cough. He denies having any orthopnea or PND. He is not sure of about low salt intake and fluid restriction. In the ER patient had labs done showing slightly elevated troponin at 0.039, 0.040 chest x-ray showing evidence of mild heart failure with increased right pleural effusion compared to recent exam. Right lower lobe pneumonia is possible. So the patient is admitted for further management. On 09/25/2020 -patient is seen and examined. He is comfortably sitting up on the bed appears to be in no acute distress. Patient states that his difficulty in breathing has improved from yesterday. He denies having any chest pain or palpitations. No cough or difficulty in breathing. No abdominal pain nausea vomiting or diarrhea. No dysuria or hematuria. On reviewing the vitals patient's temperature 98.2, heart rate 73, respiratory rate 18, blood pressure 140/67 saturating at 94 on room air. On reviewing the labs from this morning white count of 6.8, hemoglobin 14.3, BUN 25, creatinine 0.97. Active Medications Aspirin (Aspirin 81 Mg) 81 mg PO DAILY [facility] Last Admin: 09/25/20 12:30 Dose: 81 mg Documented by: Atorvastatin Calcium (Atorvastatin 80 Mg Tab) 80 mg PO HS [facility] Last Admin: 09/25/20 20:14 Dose: 80 mg Documented by: Clopidogrel Bisulfate (Clopidogrel 75 Mg Tab) 75 mg PO DAILY [facility] Last Admin: 09/25/20 12:30 Dose: 75 mg Documented by: Furosemide (Furosemide 10 Mg/Ml 4 Ml Vial) 40 mg IV Q12H [facility] Last Admin: 09/25/20 20:14 Dose: 40 mg Documented by: Heparin Sodium (Porcine) (Heparin Sodium,Porcine 5,000 Unit/Ml 1 Ml Vial) 5,000 unit SQ Q8HR [facility] Last Admin: 09/25/20 21:50 Dose: Not Given Documented by: Sodium Chloride (Saline 0.9%) 1,000 mls @ 20 mls/hr IV .Q24H [facility] Last Admin: 09/25/20 20:18 Dose: Not Given Documented by: Losartan Potassium (Losartan 25 Mg Tab) 12.5 mg PO HS [facility] Last Admin: 09/25/20 20:15 Dose: 12.5 mg Documented by: Metoprolol Tartrate (Metoprolol Tartrate 25 Mg Tab) 25 mg PO BID [facility] Last Admin: 09/25/20 20:14 Dose: 25 mg Documented by: Pantoprazole Sodium (Pantoprazole 40 Mg Tablet) 40 mg PO AC-BRKFST [facility] Last Admin: 09/25/20 06:11 Dose: 40 mg Documented by: Spironolactone (Spironolactone 25 Mg Tab) 25 mg PO DAILY [facility] Last Admin: 09/25/20 12:31 Dose: 25 mg Documented by: Objective - Vital Signs Vital signs: Vital Signs Temp 98.4 F 09/25/20 12:00 Pulse 63 09/25/20 14:00 Resp 18 09/25/20 14:00 BP 91/53 09/25/20 12:00 Pulse Ox 95 09/25/20 12:00 Intake & Output 09/24/20 09/25/20 09/25/20 18:59 06:59 18:59 Intake Total 800 900 180 Output Total 600 200 Balance 200 900 -20 Weight 79.6 kg 79.6 kg Intake: Oral 800 900 180 Output: Urine 600 200 Other: Voiding Method Urinal Urinal Toilet Urinal # Voids 2 0 # Bowel Movements 0 - Exam PHYSICAL EXAMINATION: Patient is lying in the bed comfortably, no acute distress, awake alert and oriented.. HEENT: Normocephalic. Neck is supple. Pupils reactive. Nostrils clear. Oral cavity is moist. Neck reveals no JVD, carotid bruits, or thyromegaly. CHEST EXAMINATION: Trachea is central. Symmetrical expansion. Bilateral basal crackles. CARDIAC: Normal S1, S2 with no gallops. No murmurs ABDOMEN: Soft. Bowel sounds normal. No organomegaly. No abdominal bruits. Extremities: Bilateral pitting pedal edema decreased compsred to yesterday Neurologically awake, alert, oriented x3 with well-coordinated movements. No focal deficits noted Psychiatric: Coperative. Nonsuicidal M - Labs CBC & Chem 7: 09/25/20 07:35 09/25/20 07:35 Labs: Abnormal Lab Results - Last 24 Hours (Table) 09/25/20 09/25/20 Range/Units 07:35 07:35 Lymphocytes # 0.9 L (1.0-4.8) k/uL Carbon Dioxide 35 H (22-30) mmol/L BUN 25 H (9-20) mg/dL Assessment and Plan Assessment: ASSESSMENT Acute on chronic congestive systolic heart failure Systolic heart failure with ejection fraction of less than 20% Coronary artery disease status post CABG in the past, status post stenting in August 2020 Hyperkalemia Hypertension Hyperlipidemia COPD History of CVA/TIA Former smoker PLAN : Patient is currently being treated for acute CHF exacerbation, continue with IV Lasix as he showed significant improvement in his LE swelling. Cardiology on board and following. Patient has been restarted on his home medications. Continue with beta-armando, ARB, statin, aspirin. Patient was not able to tolerate Brilinta. GI DVT prophylaxis. Further recommendations depending on the progress of the patient.
[2020-09-26] MEDS: PANTOPRAZOLE 40 MG TABLET PO SCH (06:31)
[2020-09-26] MEDS: FUROSEMIDE 10 MG/ML 4 ML VIAL IV SCH (09:01)
[2020-09-26] MEDS: SPIRONOLACTONE 25 MG TAB PO SCH (09:02)
[2020-09-26] MEDS: METOPROLOL TARTRATE 25 MG TAB PO SCH ×2 (09:02→20:28)
[2020-09-26] MEDS: CLOPIDOGREL 75 MG TAB PO SCH (09:02)
[2020-09-26] MEDS: HEPARIN SODIUM,PORCINE 5,000 UNIT/ML 1 ML VIAL SQ SCH ×3 (09:02→20:31)
[2020-09-26] MEDS: ASPIRIN 81 MG PO SCH (09:02)
[2020-09-26 09:50] LABS: African American GFR (CKD) >90 (>60 ml/min/1.73 sqM); Anion Gap 4 mmol/L; Blood Urea Nitrogen 26 mg/dL (9-20); Calcium 8.3 mg/dL (8.4-10.2); Carbon Dioxide 30 mmol/L (22-30); Chloride 103 mmol/L (98-107); Glucose 109 mg/dL (74-99); Non-African American GFR(CKD) 88 (>60 ml/min/1.73 sqM); Potassium 4.2 mmol/L (3.5-5.1); Sodium 137 mmol/L (137-145)
[2020-09-26] MEDS ORDERED: MAGNESIUM SULFATE-D5W PMX 1 GM in DEXTROSE/WATER 1 100ML.BAG IVPB ONE (10:15)
--- NOTE | 2020-09-26 10:27 | P.PN ---
Subjective This is a 60-year-old male past medical history significant for coronary artery disease status post bypass grafting, [place] vessel PCI, ischemic cardiomyopathy, chronic systolic heart failure, COPD, hypertension, dyslipidemia and medical noncompliance. He follows in the office with Dr. Luo. He is seen and examined sitting up on the edge of the bed in no acute distress. He states that he gets up and ambulates at times he feels dizzy. His breathing seems to have improved however he is only ambulating around his room due to Covid 19 restrictions on the unit. Telemetry tracings indicate he is having frequent episodes of nonsustained ventricular tachycardia. He has asymptomatic. He denies feeling palpitations or chest pain. The dizziness he is experiencing with exertion does not seem to be related to the arrhythmia. Blood pressure 98/51 heart rate 68 afebrile maintaining oxygen saturation on room air. Laboratory data reviewed, sodium 137, potassium 4.2 and creatinine 0.94. Magnesium yesterday was 1.9. Currently maintained on Lasix 40 mg IV twice a day, aspirin 81 mg daily, atorvastatin 80 mg daily, Plavix 75 mg daily, losartan 12.5 mg at bedtime, metoprolol 25 mg twice a day and Aldactone 25 mg daily. GENERAL: Well-appearing, well-nourished and in no acute distress. NECK: Supple without JVD or thyromegaly. LUNGS: Breath sounds clear to auscultation bilaterally. Respiration equal and unlabored. No wheezes, rales or rhonchi. HEART: Regular rate and rhythm without murmurs, rubs or gallops. S1 and S2 hear d. EXTREMITIES: Normal range of motion, trace bilateral lower extremity edema. No clubbing or cyanosis. Peripheral pulses intact. ASSESSMENT Acute on chronic systolic heart failure, ejection fraction less than 20% Nonsustained ventricular tachycardia Coronary artery disease status post bypass grafting with recent PCI Hypertension Dyslipidemia COPD Medical noncompliance PLAN Initiate amiodarone 400 mg by mouth twice a day. Give 1 g of magnesium. Transition to oral diuretics. Given persistent cardiomyopathy and evidence of ventricular tachycardia the patient will require placement of AICD to prevent sudden cardiac . We will discuss this with Dr. Kang and see if this can be performed on this admission. Follow renal function and electrolytes in the morning. Patient has been updated on the plan of care. Further recommendations to follow based upon clinical course. Nurse Practitioner note has been reviewed, I agree with a documented findings and plan of care. Patient was seen and examined. Objective - Vital Signs Vital signs: Vital Signs Temp 98.2 F 09/26/20 04:00 Pulse 68 09/26/20 04:00 Resp 16 09/26/20 04:00 BP 98/51 09/26/20 04:00 Pulse Ox 95 09/26/20 04:00 Intake & Output 09/25/20 09/26/20 09/26/20 18:59 06:59 18:59 Intake Total 920 550 120 Output Total 200 Balance 720 550 120 Weight 79.6 kg 78.4 kg Intake: IV 10 Invasive Line 1 10 Intake, IV Titration 20 Amount Sodium Chloride 0.9% 1, 20 000 ml @ 20 mls/hr IV . Q24H [facility] Rx#:[id number] Oral 900 540 120 Output: Urine 200 Other: Voiding Method Toilet Toilet Urinal Urinal # Voids 6 3 2 # Bowel Movements 0 - Labs CBC & Chem 7: 09/25/20 07:35 09/26/20 08:10 Labs: Abnormal Lab Results - Last 24 Hours (Table) 09/26/20 Range/Units 08:10 BUN 26 H (9-20) mg/dL Glucose 109 H (74-99) mg/dL Calcium 8.3 L (8.4-10.2) mg/dL
[2020-09-26] MEDS: AMIODARONE 200 MG TAB PO SCH ×2 (11:45→20:27)
[2020-09-26] MEDS ORDERED: SODIUM CHLORIDE 0.9% 1,000 ML IV SCH (13:45)
[2020-09-26] MEDS: FUROSEMIDE 40 MG TAB PO SCH (15:41)
[2020-09-26] MEDS ORDERED: ALPRAZolam 0.25 MG TAB PO STA (20:22)
[2020-09-26] MEDS: ATORVASTATIN 80 MG TAB PO SCH (20:27)
[2020-09-26] MEDS: LOSARTAN 25 MG TAB PO SCH (20:28)
[2020-09-26] MEDS: SODIUM CHLORIDE 0.9% 1,000 ML IV SCH (20:29)
--- NOTE | 2020-09-26 22:36 | P.PN ---
Subjective Progress Note Date: 09/26/20 Principal diagnosis: CHF Exacerbation Mr. Rosenberg is a 60-year-old male with a past medical history of coronary artery disease, congestive heart failure, COPD, coming to the hospital with a chief complaint of difficulty in breathing. Patient was recently hospitalized last month and underwent cardiac catheterization with a stent placement to the ostial and proximal and mid distal left main and proximal. Echocardiogram revealed ejection fraction of 20%. Patient states that since discharge, he has been slowly having difficulty in breathing. But for the past couple of days even walking in the house is making him feel short of breath. Patient is not taking Brilinta. Patient denies having any fevers chills or rigors. No cough. He denies having any orthopnea or PND. He is not sure of about low salt intake and fluid restriction. In the ER patient had labs done showing slightly elevated troponin at 0.039, 0.040 chest x-ray showing evidence of mild heart failure with increased right pleural effusion compared to recent exam. Right lower lobe pneumonia is possible. So the patient is admitted for further management. On 09/25/2020 -patient is seen and examined. He is comfortably sitting up on the bed appears to be in no acute distress. Patient states that his difficulty in breathing has improved from yesterday. He denies having any chest pain or palpitations. No cough or difficulty in breathing. No abdominal pain nausea vomiting or diarrhea. No dysuria or hematuria. On reviewing the vitals patient's temperature 98.2, heart rate 73, respiratory rate 18, blood pressure 140/67 saturating at 94 on room air. On reviewing the labs from this morning white count of 6.8, hemoglobin 14.3, BUN 25, creatinine 0.97. On 09/26/20 -patient is seen and examined on the general medical floors. He is lying in bed comfortably appears to be in no acute distress. Patient states that his lower extremities the swelling is better and his breathing status has improved as well. On reviewing vitals patient's temperature 97.8 heart rate 70 respiratory rate 18 head saturating at 90% on room air. Blood pressure is 106 x 70. Patient's labs showing sodium of 137, potassium four-point his BUN is 26 and creatinine 0.94. Active Medications Amiodarone HCl (Amiodarone 200 Mg Tab) 400 mg PO BID [facility] Last Admin: 09/26/20 20:27 Dose: 400 mg Documented by: Aspirin (Aspirin 81 Mg) 81 mg PO DAILY [facility] Last Admin: 09/26/20 09:02 Dose: 81 mg Documented by: Atorvastatin Calcium (Atorvastatin 80 Mg Tab) 80 mg PO HS [facility] Last Admin: 09/26/20 20:27 Dose: 80 mg Documented by: Clopidogrel Bisulfate (Clopidogrel 75 Mg Tab) 75 mg PO DAILY [facility] Last Admin: 09/26/20 09:02 Dose: 75 mg Documented by: Furosemide (Furosemide 40 Mg Tab) 40 mg PO BID@0900,1600 [facility] Last Admin: 09/26/20 15:41 Dose: 40 mg Documented by: Heparin Sodium (Porcine) (Heparin Sodium,Porcine 5,000 Unit/Ml 1 Ml Vial) 5,000 unit SQ Q8HR [facility] Last Admin: 09/26/20 20:31 Dose: Not Given Documented by: Sodium Chloride (Saline 0.9%) 1,000 mls @ 20 mls/hr IV .Q24H [facility] Last Admin: 09/26/20 20:29 Dose: 20 mls/hr Documented by: Sodium Chloride (Saline 0.9%) 1,000 mls @ 20 mls/hr IV .Q24H [facility] Last Admin: 09/26/20 20:29 Dose: Not Given Documented by: Losartan Potassium (Losartan 25 Mg Tab) 12.5 mg PO [facility] Last Admin: 09/26/20 20:28 Dose: 12.5 mg Documented by: Metoprolol Tartrate (Metoprolol Tartrate 25 Mg Tab) 25 mg PO BID [facility] Last Admin: 09/26/20 20:28 Dose: 25 mg Documented by: Pantoprazole Sodium (Pantoprazole 40 Mg Tablet) 40 mg PO AC-BRKFST [facility] Last Admin: 09/26/20 06:31 Dose: 40 mg Documented by: Spironolactone (Spironolactone 25 Mg Tab) 25 mg PO DAILY [facility] Last Admin: 09/26/20 09:02 Dose: 25 mg Documented by: Objective - Vital Signs Vital signs: Vital Signs Temp 97.8 F 09/26/20 11:52 Pulse 66 09/26/20 11:52 Resp 16 09/26/20 11:52 BP 94/60 09/26/20 11:52 Pulse Ox 97 09/26/20 11:52 Intake & Output 1209/26/20 09/26/20 18:59 06:59 18:59 Intake Total 920 550 120 Output Total 200 Balance 720 550 120 Weight 79.6 kg 78.4 kg Intake: IV 10 Invasive Line 1 10 Intake, IV Titration 20 Amount Sodium Chloride 0.9% 1, 20 000 ml @ 20 mls/hr IV . Q24H [facility] Rx#:[id number] Oral 900 540 120 Output: Urine 200 Other: Voiding Method Toilet Toilet Toilet Urinal Urinal Urinal # Voids 6 3 2 # Bowel Movements 0 - Exam PHYSICAL EXAM: Patient is lying in the bed comfortably, no acute distress, awake alert and oriented.. HEENT: Normocephalic. Neck is supple. Pupils reactive. Nostrils clear. Oral cavity is moist. Neck reveals no JVD, carotid bruits, or thyromegaly. CHEST EXAMINATION: Lungs clear CARDIAC: Normal S1, S2 with no gallops. No murmurs ABDOMEN: Soft. Bowel sounds normal. No organomegaly. Extremities: Bilateral pitting pedal edema decreased compared to yesterday Neurologically awake, alert, oriented x3 with well-coordinated movements. No focal deficits noted - Labs CBC & Chem 7: 09/25/20 07:35 09/26/20 08:10 Labs: Abnormal Lab Results - Last 24 Hours (Table) 09/26/20 Range/Units 08:10 BUN 26 H (9-20) mg/dL Glucose 109 H (74-99) mg/dL Calcium 8.3 L (8.4-10.2) mg/dL Assessment and Plan Assessment: ASSESSMENT Acute on chronic congestive systolic heart failure Systolic heart failure with ejection fraction of less than 20% Coronary artery disease status post CABG in the past, status post stenting in August 2020 Hyperkalemia Hypertension Hyperlipidemia COPD History of CVA/TIA Former smoker PLAN : Patient showed significant improvement of lower extremity swelling and difficulty in breathing to IV Lasix. He is being transitioned to p.o. Lasix. He is started on amiodarone by cardiology. As patient had evidence of ventricular tachycardia, cardiology suggested AICD placement. This was discussed with the patient, he said he has more questions regarding the procedure. Cardiology to follow-up on it. Patient has been restarted on his home medications. Continue with beta-armando, ARB, statin, aspirin. Patient was not able to tolerate Brilinta. GI DVT prophylaxis. Further recommendations depending on the progress of the patient.
[2020-09-27] MEDS ORDERED: ALPRAZolam 0.25 MG TAB PO STA (03:04)
[2020-09-27] MEDS: HEPARIN SODIUM,PORCINE 5,000 UNIT/ML 1 ML VIAL SQ SCH ×3 (05:08→22:59)
[2020-09-27] MEDS: METOPROLOL TARTRATE 25 MG TAB PO SCH ×2 (06:27→20:10)
[2020-09-27] MEDS: ASPIRIN 81 MG PO SCH (06:27)
[2020-09-27] MEDS: CLOPIDOGREL 75 MG TAB PO SCH (06:27)
[2020-09-27] MEDS: PANTOPRAZOLE 40 MG TABLET PO SCH (06:27)
[2020-09-27] MEDS: AMIODARONE 200 MG TAB PO SCH ×2 (06:27→20:10)
[2020-09-27] MEDS: LACTATED RINGERS 1,000 ML IV SCH (06:29)
[2020-09-27 08:12] LABS: Calcium 8.4 mg/dL (8.4-10.2); Potassium 4.5 mmol/L (3.5-5.1)
[2020-09-27] MEDS: SPIRONOLACTONE 25 MG TAB PO SCH (09:24)
[2020-09-27] MEDS: FUROSEMIDE 40 MG TAB PO SCH ×2 (09:24→15:23)
--- NOTE | 2020-09-27 10:53 | P.PN ---
Subjective This is a 60-year-old male past medical history significant for coronary artery disease status post bypass grafting, [place] vessel PCI, ischemic cardiomyopathy, chronic systolic heart failure, COPD, hypertension, dyslipidemia and medical noncompliance. He follows in the office with Dr. Luo. He is seen and examined sitting up in bed in no acute distress. He has been evaluated by Dr. Kang and the recommendation it LifeVest for 6 weeks and then possible ICD if his LV function has not improved. This was discussed with the patient and he does not want a LifeVest or an ICD. He is aware of the risk of sudden cardiac and states he is willing to take that risk. Telemetry tracings indicate he continues to have episodes of non-sustained ventricular tachycardia. Blood pressure 112/68 heart rate 72 afebrile and maintaining oxygen saturation on room air. He denies chest pain, dizziness or palpitations. He states his breathing seems stable but he is only able to walk around in his room due to current restrictions. Laboratory data reviewed, sodium 138, potassium 4.5, creatinine 1.06 and magnesium 2.0. Currently maintained on amiodarone 400 mg twice a day, aspirin 81 mg daily, atorvastatin 80 mg daily, Plavix 75 mg daily, Lasix 40 mg twice a day, losartan 12.5 mg at bedtime, Aldactone 25 mg daily and metoprolol 25 mg twice a day. GENERAL: Well-appearing, well-nourished and in no acute distress. NECK: Supple without JVD or thyromegaly. LUNGS: Breath sounds clear to auscultation bilaterally. Respiration equal and unlabored. No wheezes, rales or rhonchi. HEART: Regular rate and rhythm without murmurs, rubs or gallops. S1 and S2 heard. EXTREMITIES: Normal range of motion, trace bilateral lower extremity edema. No clubbing or cyanosis. Peripheral pulses intact. ASSESSMENT Acute on chronic systolic heart failure, ejection fraction less than 20% Nonsustained ventricular tachycardia Coronary artery disease status post bypass grafting with recent PCI Hypertension Dyslipidemia COPD Medical noncompliance PLAN Continue current medical regimen. Increase activity as tolerated. Continue to monitor on telemetry. Expected can be discharged home tomorrow if things continue to progress. We have recommended Life Vest, however he declines at this time. Nurse Practitioner note has been reviewed, I agree with a documented findings and plan of care. Patient was seen and examined. Objective - Vital Signs Vital signs: Vital Signs Temp 97.8 F 09/27/20 09:20 Pulse 72 09/27/20 09:20 Resp 18 09/27/20 09:20 BP 112/68 09/27/20 09:20 Pulse Ox 97 09/27/20 09:20 Intake & Output 09/26/20 09/27/20 09/27/20 18:59 06:59 18:59 Intake Total 660 540 Balance 660 540 Weight 78.2 kg Intake: Oral 660 540 Other: Voiding Method Toilet Toilet Toilet Urinal Urinal Urinal # Voids 3 2 # Bowel Movements 1 - Labs CBC & Chem 7: 09/25/20 07:35 09/27/20 07:25 Labs: Abnormal Lab Results - Last 24 Hours (Table) 09/27/20 Range/Units 07:25 Carbon Dioxide 34 H (22-30) mmol/L BUN 28 H (9-20) mg/dL
--- NOTE | 2020-09-27 17:28 | P.PN ---
Subjective Mr. Rosenberg is a 60-year-old male with a past medical history of coronary artery disease, congestive heart failure, COPD, coming to the hospital with a chief complaint of difficulty in breathing. Patient was recently hospitalized last month and underwent cardiac catheterization with a stent placement to the ostial and proximal and mid distal left main and proximal. Echocardiogram revealed ejection fraction of 20%, In the ER patient had labs done showing slightly elevated troponin at 0.039, 0.040 chest x-ray showing evidence of mild heart failure with increased right pleural effusion compared to recent exam. Right lower lobe pneumonia is possible. So the patient is admitted for further management. Patient currently was lying in bed not in distress, fully awake, no dyspnea, no chest pain. Swelling is minimal. And he is currently on Lasix 40 mg twice daily as well as amiodarone 400 mg daily. Also patient is on aspirin and Plavix. I discussed the case with cardiology team today it looks like the patient refusing LifeVest to protect him from significant arrhythmia because of this cardiology team would like to monitor him for another 24 hours in view of his nonsustained ventricular tachycardia Objective - Vital Signs Vital signs: Vital Signs Temp 98 F 09/27/20 12:21 Pulse 68 09/27/20 12:21 Resp 20 09/27/20 12:21 BP 110/77 09/27/20 12:21 Pulse Ox 98 09/27/20 12:21 Intake & Output 09/26/20 09/27/20 09/27/20 18:59 06:59 18:59 Intake Total 660 540 Balance 660 540 Weight 78.2 kg Intake: Oral 660 540 Other: Voiding Method Toilet Toilet Toilet Urinal Urinal Urinal # Voids 3 2 # Bowel Movements 1 - Exam GENERAL: The patient is alert and oriented x3, not in any acute distress. Well developed, well nourished. HEENT: Pupils are round and equally reacting to light. EOMI. No scleral icterus. No conjunctival pallor. Normocephalic, atraumatic. No pharyngeal erythema. No thyromegaly. CARDIOVASCULAR: S1 and S2 present. No murmurs, rubs, or gallops. PULMONARY: Chest is clear to auscultation, no wheezing or crackles. ABDOMEN: Soft, nontender, nondistended, normoactive bowel sounds. No palpable organomegaly. MUSCULOSKELETAL: No joint swelling or deformity. EXTREMITIES: No cyanosis, clubbing, or pedal edema. NEUROLOGICAL: Gross neurological examination did not reveal any focal deficits. SKIN: No rashes. no petechiae. - Labs CBC & Chem 7: 09/25/20 07:35 09/27/20 07:25 Labs: Abnormal Lab Results - Last 24 Hours (Table) 09/27/20 Range/Units 07:25 Carbon Dioxide 34 H (22-30) mmol/L BUN 28 H (9-20) mg/dL Assessment and Plan Assessment: Acute and chronic Systolic heart failure with ejection fraction of less than 20%. Nonsustained ventricular tachycardia Noncompliance to medical recommendation and therapy History of Coronary artery disease status post CABG in the past, status post stenting in August 2020 Hyperkalemia Hypertension Hyperlipidemia COPD History of CVA/TIA Former smoker Plan: This is a pleasant 66 years old male who presents with systolic CHF and low ejection fraction less than 20%. As per my discussion with cartilage team and they want to monitor him for over 24 hours as he was refusing LifeVest to protect from arrhythmia. Continue with oral Lasix, amiodarone, aspirin and Plavix. Keep telemetry Labs and medication were reviewed.. Continue same treatment. Continue with symptomatic treatment. Resume home medication. Monitor lytes and vitals. DVT and GI prophylaxis. Further recommendationsas per clinical course of the patient DVT prophylaxis: Subcutaneous heparin GI Prophylaxis: Ppi Prognosis is guarded
[2020-09-27] MEDS ORDERED: ALPRAZolam 0.25 MG TAB PO PRN (19:15)
[2020-09-27] MEDS: LOSARTAN 25 MG TAB PO SCH (20:10)
[2020-09-27] MEDS: ATORVASTATIN 80 MG TAB PO SCH (20:10)
[2020-09-27] MEDS: SODIUM CHLORIDE 0.9% 1,000 ML IV SCH (22:59)
[2020-09-28] MEDS: LACTATED RINGERS 1,000 ML IV SCH (06:16)
[2020-09-28] MEDS: PANTOPRAZOLE 40 MG TABLET PO SCH (06:30)
[2020-09-28] MEDS: ASPIRIN 81 MG PO SCH (08:36)
[2020-09-28] MEDS: METOPROLOL TARTRATE 25 MG TAB PO SCH (08:36)
[2020-09-28] MEDS: CLOPIDOGREL 75 MG TAB PO SCH (08:36)
[2020-09-28] MEDS: AMIODARONE 200 MG TAB PO SCH (08:36)
[2020-09-28] MEDS: FUROSEMIDE 40 MG TAB PO SCH (08:37)
[2020-09-28] MEDS: SPIRONOLACTONE 25 MG TAB PO SCH (08:37)
[2020-09-28] MEDS: HEPARIN SODIUM,PORCINE 5,000 UNIT/ML 1 ML VIAL SQ SCH (08:37)
[2020-09-28 11:01] VITALS: BP 112/73; PULSE 70; RESP 18; TEMP 97.7
--- NOTE | 2020-09-28 13:11 | P.PN ---
Subjective This is a 60-year-old male past medical history significant for coronary artery disease status post bypass grafting, lummi vessel PCI, ischemic cardiomyopathy, chronic systolic heart failure, COPD, hypertension, dyslipidemia and medical noncompliance. He follows in the office with Dr. Luo. He is seen and examined sitting up in bed in no acute distress. He has been evaluated by Dr. Kang and the recommendation it LifeVest for 6 weeks and then possible ICD if his LV function has not improved. This was discussed with the patient and he does not want a LifeVest or an ICD. He is aware of the risk of sudden cardiac and states he is willing to take that risk. Telemetry tracings indicate he continues to have episodes of non-sustained ventricular tachycardia. Blood pressure 112/68 heart rate 72 afebrile and maintaining oxygen saturation on room air. He denies chest pain, dizziness or palpitations. He states his breathing seems stable but he is only able to walk around in his room due to current restrictions. Laboratory data reviewed, sodium 138, potassium 4.5, creatinine 1.06 and magnesium 2.0. Currently maintained on amiodarone 400 mg twice a day, aspirin 81 mg daily, atorvastatin 80 mg daily, Plavix 75 mg daily, Lasix 40 mg twice a day, losartan 12.5 mg at bedtime, Aldactone 25 mg daily and metoprolol 25 mg twice a day. 09/28/2020 He is seen and examined sitting up on the edge of the bed in no acute distress. He denies chest pain, shortness of breath, dizziness or palpitations. Blood pressure 112/73 heart rate 70 afebrile and maintaining oxygen saturation on room air. Laboratory data reviewed, sodium 138, potassium 4.5, creatinine 1.06 and magnesium 2.0. He is maintained on oral amiodarone. He had some episodes of VT last night around 2229. No further today. He continues to decline having a life vest placed. GENERAL: Well-appearing, well-nourished and in no acute distress. NECK: Supple without JVD or thyromegaly. LUNGS: Breath sounds clear to auscultation bilaterally. Respiration equal and unlabored. No wheezes, rales or rhonchi. HEART: Regular rate and rhythm without murmurs, rubs or gallops. S1 and S2 heard. EXTREMITIES: Normal range of motion, trace bilateral lower extremity edema. No clubbing or cyanosis. Peripheral pulses intact. ASSESSMENT Acute on chronic systolic heart failure, ejection fraction less than 20% Nonsustained ventricular tachycardia Coronary artery disease status post bypass grafting with recent PCI Hypertension Dyslipidemia COPD Medical noncompliance PLAN Clinically stable. Medication compliance discussed at length. Amiodarone taper instructions provided. Follow up with Dr. Luo in 1-2 weeks. We have recommended Life Vest, however he declines at this time. Nurse Practitioner note has been reviewed, I agree with a documented findings and plan of care. Patient was seen and examined. Objective - Vital Signs Vital signs: Vital Signs Temp 97.7 F 09/28/20 08:00 Pulse 70 09/28/20 08:00 Resp 18 09/28/20 08:00 BP 112/73 09/28/20 08:00 Pulse Ox 98 09/28/20 08:00 Intake & Output 09/27/20 09/28/20 09/28/20 18:59 06:59 18:59 Intake Total 480 0 240 Output Total 600 Balance -120 0 240 Weight 78 kg Intake: Oral 480 0 240 Blood Product 0 Output: Urine 600 Other: Voiding Method Toilet Toilet Toilet Urinal # Voids 2 2 2 - Labs CBC & Chem 7: 09/25/20 07:35 09/27/20 07:25
--- NOTE | 2020-09-28 22:43 | P.DS ---
Providers Date of admission: 09/26/20 09:15 Attending physician: Sayra Wynn Consults: 09/23/20 20:56 Consult Physician Routine Consulting Provider: Marleen Santo Consult Reason/Comments: heart failure Do you want consulting provider notified?: Yes Primary care physician: Stated None Hospital Course: Diagnoses: Acute and chronic Systolic heart failure with ejection fraction of less than 20%. Nonsustained ventricular tachycardia Noncompliance to medical recommendation and therapy History of Coronary artery disease status post CABG in the past, status post stenting in August 2020 Hyperkalemia Hypertension Hyperlipidemia COPD History of CVA/TIA Former smoker Hospital course: Mr. Rosenberg is a 60-year-old male with a past medical history of coronary artery disease, congestive heart failure, COPD, coming to the hospital with a chief complaint of difficulty in breathing. Patient was recently hospitalized last month and underwent cardiac catheterization with a stent placement to the ostial and proximal and mid distal left main and proximal. Echocardiogram revealed ejection fraction of 20%, In the ER patient had labs done showing slightly elevated troponin at 0.039, 0.040 chest x-ray showing evidence of mild heart failure with increased right pleural effusion compared to recent exam. the patient is admitted for further management for his heart failure. [employer] Counterperson evaluated the patient, patient treated with diuretics and amiodarone. Patient showed interval improvement and he has no dyspnea while at rest or with minimal exertion. he is fully awake, no dyspnea, no abdominal complaints or urinary problem. No fever. No significant leg swelling. And he is currently on Lasix 40 mg twice daily as well as amiodarone 400 mg daily per [employer] Counterperson recommendation. Also patient is on aspirin and Plavix. Patient refused LifeVest, stating that he had before and he does not want again. Risks including but not limited to have sudden cardiac and the result we are explained for the patient, he verbalized understanding but he still refuses the LifeVest recommended by it audit manager, cardiology team are aware of patient refusal Patient wants to go home other than that Patient was cleared for discharge by it audit manager Problems and management plan were discussed with the patient and he verbalized understanding and acceptance Patient was found stable and can be discharged home however he needs follow-up as an outpatient. Patient was instructed to follow up with PCP within one week and patient agrees. Also patient was instructed to follow up with his it audit manager Dr. Luo in 1-2 weeks, he agrees and he states already has an appointment on Gen: patient is a AAOx3, no distress CVS: S1-S2, RRR, no murmur Lungs: B/L CTA, no wheezing Abdomen: soft, no distention, no tenderness, positive bowel sounds Extremity: no leg edema or induration Time spent more than 35 minutes Patient Condition at Discharge: Fair Plan - Discharge Summary Discharge Rx Participant: No New Discharge Prescriptions: No Action Spironolactone [Aldactone] 25 mg PO DAILY #30 tab Aspirin 81 mg PO DAILY #30 chew Losartan [Cozaar] 12.5 mg PO HS #30 tab Furosemide [Lasix] 20 mg PO DAILY #30 tab Atorvastatin [Lipitor] 80 mg PO HS #30 tab Metoprolol Tartrate [Lopressor] 25 mg PO BID #60 tab Nitroglycerin Sl Tabs [Nitrostat] 0.4 mg SUBLINGUAL Q5M PRN #20 tab PRN Reason: Chest Pain Discharge Medication List Aspirin 81 mg PO DAILY #30 chew 08/26/20 [Rx] Atorvastatin [Lipitor] 80 mg PO HS #30 tab 08/26/20 [Rx] Furosemide [Lasix] 20 mg PO DAILY #30 tab 08/26/20 [Rx] Losartan [Cozaar] 12.5 mg PO HS #30 tab 08/26/20 [Rx] Metoprolol Tartrate [Lopressor] 25 mg PO BID #60 tab 08/26/20 [Rx] Nitroglycerin Sl Tabs [Nitrostat] 0.4 mg SUBLINGUAL Q5M PRN #20 tab 08/26/20 [Rx] Spironolactone [Aldactone] 25 mg PO DAILY #30 tab 08/26/20 [Rx] Follow up Appointment(s)/Referral(s): None,Stated [Primary Care Provider] - 1-2 days Patient Instructions/Handouts: Heart Failure (DC)
== END 2020-09-28 15:06 | disposition home or self-care (01) | DRG 292 ==
LOC: EC 16:57 → 3SCARD 20:56 → OBSVTOIN 09-26 09:15
PROVIDERS: ADMIT Hospitalist; ATTEND Hospitalist
DX: I11.0 Hypertensive heart disease with heart failure (principal); I47.2 Ventricular tachycardia; J44.9 Chronic obstructive pulmonary disease, unspecified; I50.23 Acute on chronic systolic (congestive) heart failure; I25.5 Ischemic cardiomyopathy; I25.10 Atherosclerotic heart disease of native coronary artery without angina pectoris; E87.5 Hyperkalemia; E78.5 Hyperlipidemia, unspecified; Z95.5 Presence of coronary angioplasty implant and graft; Z91.19 Patient's noncompliance with other medical treatment and regimen; Z87.891 Personal history of nicotine dependence; Z95.1 Presence of aortocoronary bypass graft; Z86.73 Personal history of transient ischemic attack (TIA), and cerebral infarction without residual deficits; Z83.3 Family history of diabetes mellitus; Z82.49 Family history of ischemic heart disease and other diseases of the circulatory system; Z79.899 Other long term (current) drug therapy; Z79.82 Long term (current) use of aspirin; Z79.02 Long term (current) use of antithrombotics/antiplatelets; I25.2 Old myocardial infarction
CPT/HCPCS: 36415; 71046; 80048; 80053; 83605; 83735; 83880; 84484; 85025; 85610; 85730; 93005; 93308; 94760; 96374; 96376; 99285